=== PATIENT | male | born 1945 | race Caucasian/White ===

== ENCOUNTER 2017-07-21 14:27 | Inpatient (IN) | payer MEDICARE, MEDICAID ==
[~2017-07-21] VITALS: Ht 185.4 cm; Wt 110.4 kg
[2017-07-21 14:28] VITALS: BP 197/114; PULSE 103; RESP 20; TEMP 97.9; O2SAT 97
[2017-07-21] MEDS ORDERED: ASPI81TA81 PO (14:47)
--- NOTE | 2017-07-21 15:00 | PD ---
HPI Chief Complaint: Laceration/Skin Injury Time Seen by Provider: 14:51 Travel History International Travel<30 days: No Contact w/Intl Traveler<30days: No Traveled to known affect area: No History of Present Illness HPI 72-year-old male patient with history of CHF, hypertension, presents to the ER today because he has had a nonhealing left leg wound for at least 2 weeks, states that he had fell and hit the area, and it had enlarged and gone worst. He also states that he has not been feeling well, has some chest discomfort and shortness of breath intermittently especially at night. He is currently denying any chest pains or shortness of breath. He denies any fevers, vomiting , or other symptoms. Modifying Factors: None Associated Signs & Symptoms: Left leg wound, intermittent chest discomfort and shortness of breath Risk Factors: Elderly PFSH Past Medical History Arthritis: No Asthma: No Autoimmune Disease: No Blood Disorders: No Anxiety: No Depression: No Heart Rhythm Problems: Yes (Pace w/ Defib [phone]) Cancer: No Cardiac Catheterization: Yes Cardiovascular Problems: Yes (AICD/PACEMAKER) High Cholesterol: No Chemotherapy: No Chest Pain: Yes Congestive Heart Failure: Yes COPD: No Cerebrovascular Accident: No Diabetes: No Diminished Hearing: No Endocrine: No Gastrointestinal Disorders: Yes GERD: No Genitourinary: No Hiatal Hernia: No Hypertension: Yes Immune Disorder: No Implanted Vascular Access Dvce: Yes Kidney Stones: No Musculoskeletal: Yes (Back surgery x2) Neurologic: No Psychiatric: No Reproductive: No Respiratory: No Immunizations Current: Yes Migraines: No Radiation Therapy: No Renal Failure: No Seizures: No Sickle Cell Disease: No Sleep Apnea: No Thyroid Disease: No Ulcer: Yes Past Surgical History Abdominal Surgery: No AICD: Yes Arteriovenous Shunt: No Cardiac Surgery: Yes (02[facility]24[facility]) Ear Surgery: No Endocrine Surgery: No Eye Surgery: No Genitourinary Surgery: No Gynecologic Surgery: No Insulin Pump: No Joint Replacement: No Oral Surgery: No Pacemaker: Yes (AND DEFIB) Thoracic Surgery: No Other Surgery: Yes Social History Alcohol Use: Yes (MODERATE USE, NOT EVERYDAY) Tobacco Use: Yes (SOME DAY SMOKER) Substance Use: Yes (HX OF, DENIES CURRENT USE) Allergies-Medications (Allergen,Severity, Reaction): Coded Allergies: No Known Allergies (Verified , 08/09/16) Reported Meds & Prescriptions Reported Meds & Active Scripts Active Reported Aspir-81 (Aspirin) 81 Mg Tabdr 162 Mg PO DAILY Review of Systems Except as stated in HPI: all other systems reviewed are Neg Physical Exam Narrative GENERAL: Well-developed elderly white male patient currently in mild distress. Awake and oriented 3. SKIN: Focused skin assessment warm/dry. There is a 5 cm left anterior cohn wound that has surrounding erythema and brownish eschar. There is surrounding edema and tenderness to palpation as well. HEAD: Atraumatic. Normocephalic. EYES: Pupils equal and round. No scleral icterus. No injection or drainage. ENT: No nasal bleeding or discharge. Mucous membranes pink and moist. NECK: Trachea midline. No JVD. CARDIOVASCULAR: Regular rate and rhythm. No murmur appreciated. RESPIRATORY: No accessory muscle use. Clear to auscultation. Breath sounds equal bilaterally. GASTROINTESTINAL: Abdomen soft, non-tender, nondistended. Hepatic and splenic margins not palpable. MUSCULOSKELETAL: No obvious deformities. No clubbing. No cyanosis. No edema. NEUROLOGICAL: Awake and alert. No obvious cranial nerve deficits. Motor grossly within normal limits. Normal speech. PSYCHIATRIC: Appropriate mood and affect; insight and judgment normal. Data Data Last Documented VS Vital Signs Date Time Temp Pulse Resp B/P (MAP) Pulse Ox O2 Delivery O2 Flow Rate FiO2 07/21/17 14:56 Room Air 07/21/17 14:28 97.9 103 20 97 Orders Orders Electrocardiogram (07/21/17 14:51) Complete Blood Count With Diff (07/21/17 14:51) Comprehensive Metabolic Panel (07/21/17 14:51) Lactic Acid Sepsis Protocol (07/21/17 14:51) Ckmb (Isoenzyme) Profile (07/21/17 14:51) Troponin I (07/21/17 14:51) Blood Culture (07/21/17 14:51) Chest, Single Ap (07/21/17 14:51) Blood Glucose (07/21/17 14:51) Ecg Monitoring (07/21/17 14:51) Iv Access Insert/Monitor (07/21/17 14:51) Oximetry (07/21/17 14:51) Oxygen Administration (07/21/17 14:51) Tibia/Fibula (Ap/Lat) (07/21/17 15:00) Piperacil-Tazo 4.5 Gm Premix (Zosyn 4.5 (07/21/17 16:29) Labs Laboratory Tests Test 07/21/17 10:20 07/21/17 15:20 White Blood Count 5.4 TH/MM3 Red Blood Count 3.54 MIL/MM3 Hemoglobin 12.1 GM/DL Hematocrit 36.6 % Mean Corpuscular Volume 103.6 FL Mean Corpuscular Hemoglobin 34.3 PG Mean Corpuscular Hemoglobin Concent 33.1 % Red Cell Distribution Width 14.6 % Platelet Count 284 TH/MM3 Mean Platelet Volume 7.0 FL Neutrophils (%) (Auto) 62.6 % Lymphocytes (%) (Auto) 14.2 % Monocytes (%) (Auto) 13.7 % Eosinophils (%) (Auto) 8.1 % Basophils (%) (Auto) 1.4 % Neutrophils # (Auto) 3.4 TH/MM3 Lymphocytes # (Auto) 0.8 TH/MM3 Monocytes # (Auto) 0.7 TH/MM3 Eosinophils # (Auto) 0.4 TH/MM3 Basophils # (Auto) 0.1 TH/MM3 CBC Comment DIFF FINAL Differential Comment Blood Urea Nitrogen 14 MG/DL Creatinine 0.79 MG/DL Random Glucose 99 MG/DL Total Protein 7.0 GM/DL Albumin 3.1 GM/DL Calcium Level 8.5 MG/DL Alkaline Phosphatase 55 U/L Aspartate Amino Transf (AST/SGOT) 17 U/L Alanine Aminotransferase (ALT/SGPT) 17 U/L Total Bilirubin 0.3 MG/DL Sodium Level 139 MEQ/L Potassium Level 3.9 MEQ/L Chloride Level 108 MEQ/L Carbon Dioxide Level 24.6 MEQ/L Anion Gap 6 MEQ/L Estimat Glomerular Filtration Rate 96 ML/MIN Total Creatine Kinase 50 U/L Troponin I 0.02 NG/ML Lactic Acid Level 1.4 mmol/L MDM Medical Decision Making Medical Screen Exam Complete: Yes Emergency Medical Condition: Yes Medical Record Reviewed: Yes Interpretation(s) EKG shows paced rhythm at a rate of 92 bpm. No signs of acute ST-T changes. Laboratory Tests Test 07/21/17 10:20 07/21/17 15:20 Red Blood Count 3.54 MIL/MM3 (4.50-5.90) Hemoglobin 12.1 GM/DL (13.0-17.0) Hematocrit 36.6 % (39.0-51.0) Mean Corpuscular Volume 103.6 FL (80.0-100.0) Mean Corpuscular Hemoglobin 34.3 PG (27.0-34.0) Monocytes (%) (Auto) 13.7 % (0.0-8.0) Eosinophils (%) (Auto) 8.1 % (0.0-4.0) Lymphocytes # (Auto) 0.8 TH/MM3 (1.0-4.8) Albumin 3.1 GM/DL (3.4-5.0) Chloride Level 108 MEQ/L (98-107) Last 24 hours Impressions Tibia/Fibula X-Ray 07/21/17 1500 Signed Impressions: Service Date/Time: Friday, July 21, 2017 15:19 - CONCLUSION: Osseous structures of the leg are intact. Rolando Hodges MD Chest X-Ray 07/21/17 1451 Signed Impressions: Service Date/Time: Friday, July 21, 2017 15:04 - CONCLUSION: Cardiomegaly. Clear lungs. Rolando George Jr., MD Differential Diagnosis Left leg cellulitis versus sepsis versus dehydration versus metabolic issues versus ACS Narrative Course Ex-rays did not reveal any signs of osseous injuries or osteomyelitis. The wound does appear to have some underlying infection and IV antibiotics were initiated after cultures were drawn. There are no sniff can signs of sepsis at this point. EKG and cardiac enzymes are negative. However, patient's intermittent chest pains which have been getting worse, my plan would also be to admit him for further evaluation of cardiac issues. Case is discussed with Dr. Cruz for admission. Diagnosis Primary Impression: Chest pain Additional Impressions: Leg wound, left Cellulitis Admitting Information Admitting Physician Requests: Admit Leslie Aguirre MD Jul 21, 2017 15:00
--- NOTE | 2017-07-21 15:16 | RADRPT ---
EXAM DATE/TIME: 07/21/2017 15:04 [facility] COMPARISON: CHEST SINGLE AP, August 08, 2016, 16:30. INDICATIONS : Chest pain. MEDICAL HISTORY : Hypertension. SURGICAL HISTORY : Defibrilator. ENCOUNTER: Initial ACUITY: 1 day PAIN SCORE: 0/10 LOCATION: Bilateral chest FINDINGS: Bilateral portable frontal views of the chest show cardiomegaly. Pulmonary vascular engorgement is no t appreciated. Linear atelectasis within the lingula. No infiltrates or effusions. Pacing device over lying the left chest. CONCLUSION: Cardiomegaly. Clear lungs. Rolando George Jr., MD on July 21, 2017 at 15:14 Board Certified Radiologist. This report was verified electronically.
[2017-07-21 15:50] LABS: AUTOMATED NEUTROPHIL # 3.4 TH/MM3 (1.8-7.7); BASOPHIL # 0.1 TH/MM3 (0-0.2); BASOPHIL % 1.4 % (0.0-2.0); EOSINOPHIL # 0.4 TH/MM3 (0-0.4); EOSINOPHIL % 8.1 % (0.0-4.0); HEMATOCRIT 36.6 % (39.0-51.0); HEMOGLOBIN 12.1 GM/DL (13.0-17.0); LYMPH % 14.2 % (9.0-44.0); LYMPHOCYTE # 0.8 TH/MM3 (1.0-4.8); MEAN CELL VOLUME 103.6 FL (80.0-100.0); MEAN CORPUSCULAR HEMOGLOBIN 34.3 PG (27.0-34.0); MEAN CORPUSCULAR HGB CONC 33.1 % (32.0-36.0); MONO % 13.7 % (0.0-8.0); MONOCYTE # 0.7 TH/MM3 (0-0.9); NEUT % 62.6 % (16.0-70.0); PLATELET COUNT 284 TH/MM3 (150-450); RED BLOOD COUNT 3.54 MIL/MM3 (4.50-5.90); RED CELL DISTRIBUTION WIDTH 14.6 % (11.6-17.2); WHITE BLOOD COUNT 5.4 TH/MM3 (4.0-11.0)
--- NOTE | 2017-07-21 15:59 | RADRPT ---
EXAM DATE/TIME: 07/21/2017 15:19 [facility] COMPARISON: No previous studies available for comparison. INDICATIONS : Left tibia pain and swelling after fall. MEDICAL HISTORY : Previous ankle fracture. SURGICAL HISTORY : None. ENCOUNTER: Initial ACUITY: 3 weeks PAIN SCORE: 10/10 LOCATION: Left middle tibia. FINDINGS: Two view examination of the left tibia demonstrates no evidence of fracture or dislocation. Bony min eralization is normal. No radiopaque foreign bodies. Vascular calcification. Area of clinical conc lam is medially in the mid calf; there is soft tissue swelling, but no radiopaque foreign bodies.. CONCLUSION: Osseous structures of the leg are intact. Rolando Hodges MD on July 21, 2017 at 15:57 Board Certified Radiologist. This report was verified electronically.
[2017-07-21 16:10] LABS: ALBUMIN 3.1 GM/DL (3.4-5.0); BICARBONATE 24.6 MEQ/L (21.0-32.0); BLOOD UREA NITROGEN 14 MG/DL (7-18); CALCIUM 8.5 MG/DL (8.5-10.1); CHLORIDE 108 MEQ/L (98-107); CREATININE 0.79 MG/DL (0.60-1.30); GLOMERULAR FILTRATION RATE 96 ML/MIN (>89); GLUCOSE,RANDOM 99 MG/DL (74-106); SODIUM (NA) 139 MEQ/L (136-145)
[2017-07-21 16:11] LABS: AST (GOT) 17 U/L (15-37)
[2017-07-21 16:15] LABS: ALKALINE PHOSPHATASE 55 U/L (45-117); ALT (GPT) 17 U/L (12-78); TOTAL BILIRUBIN ADULT 0.3 MG/DL (0.2-1.0); TROPONIN I 0.02 NG/ML (0.02-0.05)
[2017-07-21] MEDS ORDERED: PIPERACIL-TAZO 4.5 GM PREMIX 100 ML IV STA (16:29)
[2017-07-21 17:00] VITALS: BP 129/69; PULSE 86; RESP 16; O2SAT 96
[2017-07-21] MEDS ORDERED: NALOXONE HCL 0.4 MG/ML AMP IV PUSH PRN ×2 (17:00→19:00)
[2017-07-21] MEDS ORDERED: LACTULOSE SYRUP 20 GM/30 ML CUP PO PRN (17:00)
[2017-07-21] MEDS ORDERED: BISACODYL 10 MG SUPP RECTAL PRN (17:00)
[2017-07-21] MEDS ORDERED: SODIUM CHLORIDE 0.9% FLUSH 10 ML FLUSH IV FLUSH PRN (17:00)
[2017-07-21] MEDS ORDERED: MAGNESIUM HYDROXIDE SUSP 30 ML CUP PO PRN (17:00)
[2017-07-21] MEDS ORDERED: ONDANSETRON HCL 4 MG/2 ML VIAL IVP PRN (17:00)
[2017-07-21] MEDS ORDERED: SENNOSIDES 8.6 MG TAB PO PRN (17:00)
--- NOTE | 2017-07-21 18:00 | HHI.HP ---
HPI Service [facility] Hospitalists Primary Care Physician Unknown Admission Diagnosis intermittent chest pains/left leg cellulitis/wound Diagnoses: Chief Complaint: Intermittent chest pain or shortness of breath Left wrist pain Wound left lower extremity Travel History International Travel<30 Days: No Contact w/Intl Traveler <30 Da: No Traveled to Known Affected Are: No History of Present Illness Written by Radha Solorzano, acting as scribe for Dr. Cruz on 07/21/17 at 17: 27. This is 72-year-old male with a past medical history significant for hypertension, history of atrial fibrillation status post ablation, CAD status post previous [place], defibrillator implantation, CHF, chronic tobacco abuse, chronic alcohol abuse, history of polysubstance abuse and medication noncompliance since to [facility] [address] ED with complaints of nonhealing wound left lower extremity for the past 2-3 weeks. Patient states he fell and hit the area on a curb several weeks ago. He's been using peroxide at home and states that it's decreased in size. He reports intermittent drainage of serous fluid but denies any pus. Due to not being allowed to ride the bus because of the draining wound, patient went to the clinic today and was then sent to our facility. Additionally, patient complains of intermittent chest pain. He states this most often occurs at rest when he is trying to sleep at night. Occasionally radiates into the left arm. He reports associated shortness of breath. He denies any palpitations, lightheadedness, nausea or vomiting. Patient reports improvement after sitting up on the side of the bed for several minutes. He states he does not have the defibrillator interrogated in quite some time. Also, patient complains of ongoing left wrist pain since he sustained a fall approximately one year ago. "I know that it's broken". At present, patient is chest pain-free. Initial troponin 0.02. EKG was obtained which shows a paced rhythm at a rate of 92 bpm with no evidence of acute ST-T changes. Review of Systems Except as stated in HPI: all other systems reviewed are Neg Past Family Social History Past Medical History Hypertension History of atrial fibrillation CAD status post previous [place] Cardiomyopathy status post AICD placement History of CHF Dyslipidemia Chronic tobacco abuse Chronic alcohol abuse Medication noncompliance Past Surgical History AICD placement Cardiac ablation Back surgery 2 Reported Medications Patient denies taking any medications at home Allergies: Coded Allergies: No Known Allergies (Verified , 08/09/16) Active Ordered Medications Current Medications Medications (Trade) Dose Ordered Sig/Keith Route Start Time Stop Time Status Last Admin Sodium Chloride 1,000 ml @ 100 mls/hr Q10H IV 07/21/17 16:58 UNV (NS Flush) 2 ml UNSCH PRN IV FLUSH 07/21/17 17:00 UNV (NS Flush) 2 ml BID IV FLUSH 07/21/17 21:00 UNV (Tylenol) 650 mg Q4H PRN PO 07/21/17 17:00 UNV (Zofran Inj) 4 mg Q6H PRN IVP 07/21/17 17:00 UNV (Lovenox Inj) 40 mg Q24H SQ 07/21/17 17:00 UNV (Narcan Inj) 0.4 mg UNSCH PRN IV PUSH 07/21/17 17:00 UNV (Kylee-Colace) 1 tab BID PO 07/21/17 21:00 UNV (Milk Of Magnesia Liq) 30 ml Q12H PRN PO 07/21/17 17:00 UNV (Senokot) 17.2 mg Q12H PRN PO 07/21/17 17:00 UNV (Dulcolax Supp) 10 mg DAILY PRN RECTAL 07/21/17 17:00 UNV (Lactulose Liq) 30 ml DAILY PRN PO 07/21/17 17:00 UNV Piperacillin Sod/ Tazobactam Sod 100 ml @ 200 mls/hr Q6H IV 07/21/17 17:15 UNV Family History Mother, age 91 Sisters, age 91 and 92 Father, unknown, estranged Social History Patient reports history of tobacco use of one pack per month. He states he only smokes when he drinks. He admits to previously drinking large amounts of alcohol but states the last year he has cut down and now drinks once a week. He also reports rare marijuana use. Per EMR, previous history of cocaine use. Physical Exam Vital Signs Vital Signs Date Time Temp Pulse Resp B/P (MAP) Pulse Ox O2 Delivery O2 Flow Rate FiO2 07/21/17 17:00 86 16 129/69 (89) 96 07/21/17 14:56 Room Air 07/21/17 14:56 Room Air 07/21/17 14:28 97.9 103 20 197/114 (141) 97 Room Air Physical Exam GENERAL: This is a well-nourished, well-developed patient, in no apparent distress. Awake and alert. Appears comfortable. SKIN: Warm and dry. (+)wound anterior lower left cohn, approximately 3x4cm with large central area of eschar and surrounding erythema. Tender to palpation. Not actively draining. HEAD: Atraumatic. Normocephalic. No temporal or scalp tenderness. EYES: Pupils equal round and reactive. Extraocular motions intact. No scleral icterus. No injection or drainage. ENT: Nose without bleeding or purulent drainage. Throat without erythema, tonsillar hypertrophy or exudate. Uvula midline. Airway patent. Poor dentition. NECK: Trachea midline. No lymphadenopathy. Supple, nontender, no meningeal signs. CARDIOVASCULAR: Regular rate and rhythm without murmurs, gallops, or rubs. RESPIRATORY: Clear to auscultation. Breath sounds equal bilaterally. No wheezes , rales, or rhonchi. GASTROINTESTINAL: Abdomen soft, non-tender, nondistended. No hepato-splenomegaly , or palpable masses. No guarding. MUSCULOSKELETAL: Extremities without clubbing, cyanosis, or edema. Decreased ROM left wrist with mild deformity appreciated and well healed scar on back of hand. NEUROLOGICAL: Awake and alert. Able to move approximately spontaneously. Normal speech. Laboratory Laboratory Tests Test 07/21/17 10:20 07/21/17 15:20 White Blood Count 5.4 Red Blood Count 3.54 Hemoglobin 12.1 Hematocrit 36.6 Mean Corpuscular Volume 103.6 Mean Corpuscular Hemoglobin 34.3 Mean Corpuscular Hemoglobin Concent 33.1 Red Cell Distribution Width 14.6 Platelet Count 284 Mean Platelet Volume 7.0 Neutrophils (%) (Auto) 62.6 Lymphocytes (%) (Auto) 14.2 Monocytes (%) (Auto) 13.7 Eosinophils (%) (Auto) 8.1 Basophils (%) (Auto) 1.4 Neutrophils # (Auto) 3.4 Lymphocytes # (Auto) 0.8 Monocytes # (Auto) 0.7 Eosinophils # (Auto) 0.4 Basophils # (Auto) 0.1 CBC Comment DIFF FINAL Differential Comment Blood Urea Nitrogen 14 Creatinine 0.79 Random Glucose 99 Total Protein 7.0 Albumin 3.1 Calcium Level 8.5 Alkaline Phosphatase 55 Aspartate Amino Transf (AST/SGOT) 17 Alanine Aminotransferase (ALT/SGPT) 17 Total Bilirubin 0.3 Sodium Level 139 Potassium Level 3.9 Chloride Level 108 Carbon Dioxide Level 24.6 Anion Gap 6 Estimat Glomerular Filtration Rate 96 Total Creatine Kinase 50 Troponin I 0.02 Lactic Acid Level 1.4 Date/Time Source Procedure Growth Status 07/21/17 10:25 Blood Peripheral Aerobic Blood Culture Pending Received 07/21/17 10:25 Blood Peripheral Anaerobic Blood Culture Pending Received Result Diagram: 07/21/17 1020 07/21/17 1020 Imaging Last Impressions Tibia/Fibula X-Ray 07/21/17 1500 Signed Impressions: Service Date/Time: Friday, July 21, 2017 15:19 - CONCLUSION: Osseous structures of the leg are intact. Rolando Hodges MD Chest X-Ray 07/21/17 1451 Signed Impressions: Service Date/Time: Friday, July 21, 2017 15:04 - CONCLUSION: Cardiomegaly. Clear lungs. Rolando George Jr., MD [place] VTE Risk Assessment Caprini VTE Risk Assessment: Mod/High Risk (score >= 2) Caprini Risk Assessment Model Point Value = 1 Point Value = 2 Point Value = 3 Point Value = 5 Age 41-60 Minor surgery BMI > 25 kg/m2 Swollen legs Varicose veins or History of unexplained or recurrent spontaneous Oral contraceptives or hormone replacement Sepsis (< 1 month) Serious lung disease, including pneumonia (< 1 month) Abnormal pulmonary function Acute myocardial infarction Congestive heart failure (< 1 month) History of inflammatory bowel disease Medical patient at bed rest Age 61-74 Arthroscopic surgery Major open surgery (> 45 min) Laparoscopic surgery (> 45 min) Malignancy Confined to bed (> 72 hours) Immobilizing plaster cast Central venous access Age >= 75 History of VTE Family history of VTE Factor V Leiden Prothrombin [id number] Lupus anticoagulant Anticardiolipin antibodies Elevated serum homocysteine Heparin-induced thrombocytopenia Other congenital or acquired thrombophilia Stroke (< 1 month) Elective arthroplasty Hip, pelvis, or leg fracture Acute spinal cord injury (< 1 month) Prophylaxis Regimen Total Risk Factor Score Risk Level Prophylaxis Regimen 0-1 Low Early ambulation 2 Moderate Order ONE of the following: *Sequential Compression Device (SCD) *Heparin 5000 units SQ BID 3-4 Higher Order ONE of the following medications: *Heparin 5000 units SQ TID *Enoxaparin/Lovenox 40 mg SQ daily (WT < 150 kg, CrCl > 30 mL/min) *Enoxaparin/Lovenox 30 mg SQ daily (WT < 150 kg, CrCl > 10-29 mL/min) *Enoxaparin/Lovenox 30 mg SQ BID (WT < 150 kg, CrCl > 30 mL/min) AND/OR *Sequential Compression Device (SCD) 5 or more Highest Order ONE of the following medications: *Heparin 5000 units SQ TID (Preferred with Epidurals) *Enoxaparin/Lovenox 40 mg SQ daily (WT < 150 kg, CrCl > 30 mL/min) *Enoxaparin/Lovenox 30 mg SQ daily (WT < 150 kg, CrCl > 10-29 mL/min) *Enoxaparin/Lovenox 30 mg SQ BID (WT < 150 kg, CrCl > 30 mL/min) AND *Sequential Compression Device (SCD) Assessment and Plan Assessment and Plan 72-year-old male with a past medical history significant for hypertension, history of atrial fibrillation status post ablation, CAD status post previous [place] , defibrillator implantation, CHF, chronic tobacco abuse, chronic alcohol abuse , history of polysubstance abuse and medication noncompliance since to [facility] [address] [facility] ED with complaints of nonhealing wound left lower extremity for the past 2-3 weeks. Intermittent chest pain, r/o ACS Cardiomyopathy status post AICD implantation CAD s/p previous [place] hx of atrial fibrillation s/p cardiac ablation Medication noncompliance - Patient with previous cardiac catheterization in 2010 showing triple- vessel disease with recommended medical management. - Trend cardiac enzymes and EKG. Initial troponin 0.02. - Request interrogation of pacemaker. Will consider consultation of Dr. Macdonald. - Continuous cardiac monitoring - Aspirin daily - Heart healthy diet - Supplemental oxygen Nonhealing LLE wound - Patient given dose of Zosyn in the ED. Continue. - Patient does not appear septic. White count is normal. Lactic acid 1.4. He is afebrile. Follow-up on blood culture results. - Wound culture - Consult wound care nurse - Obtain soft tissue ultrasound to ascertain if there is an underlying abscess that would require surgical consultation Left wrist pain status post fall 1 year ago - Patient does appear to have some limited range of motion in deformity in the left wrist. Will obtain x-ray left wrist for further evaluation Hypertension - Patient admits to being noncompliant with his medications - BP was elevated at presentation 197/114. Improved now 129/69. CHF - Does not appear decompensated - Chest x-ray personally reviewed shows cardiomegaly and clear lungs. - Nuclear stress test done in 2013 showed ejection fraction of 25%. Patient is noncompliant with therapy. - Monitor for signs of fluid overload - Monitor respiratory status Macrocytosis - Likely secondary to alcohol use - Discussed abstinence Alcohol use - No signs/symptoms of alcohol withdrawal - Monitor Ongoing tobaccoism - Discussed smoking cessation - Nicotine patch if necessary DVT prophylaxis - Bilateral SCD/[place] hose - Lovenox 40 mg sq daily This note was transcribed by ANASTACIO Lara. I, Dr. Marifer Cruz personally performed the history, physical exam, and medical decision making; and confirmed the accuracy of the information in the transcribed note. Authenticated by Dr. Marifer Cruz on 07/21/17 at 17:27. Discussed Condition With ED physician, patient Physician Certification 2 Midnight Certification Type: Admission for Inpatient Services Order for Inpatient Services The services are ordered in accordance with Medicare regulations or non- Medicare payer requirements, as applicable. In the case of services not specified as inpatient-only, they are appropriately provided as inpatient services in accordance with the 2-midnight benchmark. Estimated LOS (days): 3 3 days is the estimated time the patient will need to remain in the hospital, assuming treatment plan goals are met and no additional complications. Post-Hospital Plan: Not yet determined Radha Solorzano Jul 21, 2017 18:00 Marifer Cruz MD Jul 21, 2017 18:47
--- NOTE | 2017-07-21 18:11 | RADRPT ---
EXAM DATE/TIME: 07/21/2017 17:34 [facility] COMPARISON: No previous studies available for comparison. INDICATIONS : Left wrist discomfort, no known injury. MEDICAL HISTORY : None. SURGICAL HISTORY : None. ENCOUNTER: Initial ACUITY: 1 year PAIN SCORE: 1/10 LOCATION: Left wrist. FINDINGS: There is a transverse fracture through the distal one third of the scaphoid with one half bone width lateral displacement of the distal fragment. The remainder of the carpus is in normal alignment. Mo derately advanced degenerative changes in the 1st CMC articulation. Vascular calcification distal fo rearm.. CONCLUSION: Displaced transverse fracture of the distal one third of the scaphoid. Rolando Hodges MD on July 21, 2017 at 18:07 Board Certified Radiologist. This report was verified electronically.
[2017-07-21] MEDS: ENOXAPARIN SODIUM 40 MG/0.4 ML SYRINGE SQ SCH (18:31)
[2017-07-21] MEDS: SODIUM CHLOR 0.9% 1000 ML INJ 1,000 ML IV SCH (18:31)
--- NOTE | 2017-07-21 20:14 | RADRPT ---
EXAM DATE/TIME: 07/21/2017 18:52 [facility] COMPARISON: No previous studies available for comparison. INDICATIONS : Left leg swelling and redness. MEDICAL HISTORY : Congestive heart failure. Myocardial infarction. Hypertension. Irregular heartbeat. Measles. SURGICAL HISTORY : Pacemaker. Cardiac catheterization. Internal defibrillator. Back surgery. ENCOUNTER: Initial ACUITY: 2 weeks PAIN SCORE: 10 LOCATION: Left leg. AREA EVALUATED: Left medial calf area. FINDINGS: There is a complex primarily hypoechoic mass/collection in the medial left calf which measures 6.7 x 4.5 x 2.1 cm. No internal color flow is identified. There is subjectively increased Doppler color lorene w surrounding the process. CONCLUSION: Complex hypoechoic collection in the medial left calf Frank Bedolla MD on July 21, 2017 at 20:10 Board Certified Radiologist. This report was verified electronically.
[2017-07-21 20:40] VITALS: BP 132/76; PULSE 85; RESP 19; TEMP 98.4; O2SAT 96
[2017-07-21] MEDS: DOCUSATE SODIUM 50 MG/SENNA 8.6 MG TAB PO SCH (22:03)
[2017-07-21] MEDS: PIPERACIL-TAZO 4.5 GM PREMIX 100 ML IV SCH (22:04)
[2017-07-21] MEDS: SODIUM CHLORIDE 0.9% FLUSH 10 ML FLUSH IV FLUSH SCH (22:04)
[2017-07-21 23:00] VITALS: PULSE 75
[2017-07-21 23:45] VITALS: BP 145/83; PULSE 87; RESP 18; TEMP 98.3; O2SAT 94
[2017-07-22] VITALS (9 sets, daily range): BP systolic 124–155; BP diastolic 65–81; PULSE 78–97; RESP 18–24; TEMP 97.6–98.2; O2SAT 94–97
[2017-07-22] MEDS: PIPERACIL-TAZO 4.5 GM PREMIX 100 ML IV SCH ×3 (04:20→18:35)
[2017-07-22 04:34] LABS: BASOPHIL # 0.1 TH/MM3 (0-0.2); BASOPHIL % 2.6 % (0.0-2.0); EOSINOPHIL # 0.6 TH/MM3 (0-0.4); EOSINOPHIL % 10.4 % (0.0-4.0); HEMATOCRIT 34.2 % (39.0-51.0); HEMOGLOBIN 11.5 GM/DL (13.0-17.0); LYMPH % 18.6 % (9.0-44.0); MEAN CELL VOLUME 101.8 FL (80.0-100.0); MEAN CORPUSCULAR HEMOGLOBIN 34.1 PG (27.0-34.0); MEAN CORPUSCULAR HGB CONC 33.5 % (32.0-36.0); MONO % 14.2 % (0.0-8.0); MONOCYTE # 0.8 TH/MM3 (0-0.9); NEUT % 54.2 % (16.0-70.0); PLATELET COUNT 265 TH/MM3 (150-450); RED BLOOD COUNT 3.36 MIL/MM3 (4.50-5.90); RED CELL DISTRIBUTION WIDTH 14.4 % (11.6-17.2); WHITE BLOOD COUNT 5.5 TH/MM3 (4.0-11.0)
[2017-07-22 04:59] LABS: BICARBONATE 25.3 MEQ/L (21.0-32.0); CALCIUM 8.1 MG/DL (8.5-10.1); CREATININE 0.91 MG/DL (0.60-1.30)
--- NOTE | 2017-07-22 09:34 | HHI.PR ---
Subjective Remarks Patient says he feels better today. No n/v/d/c. Says he has pain at the wound site, and is not draining much. No fever or chills. Objective Vitals Vital Signs Date Time Temp Pulse Resp B/P (MAP) Pulse Ox O2 Delivery O2 Flow Rate FiO2 07/22/17 07:31 97.7 82 24 132/81 (98) 96 07/22/17 07:17 94 21 07/22/17 03:48 98.2 84 18 124/65 (84) 96 07/21/17 23:45 98.3 87 18 145/83 (103) 94 07/21/17 23:00 75 07/21/17 20:40 98.4 85 19 132/76 (94) 96 07/21/17 17:00 86 16 129/69 (89) 96 07/21/17 14:56 Room Air 07/21/17 14:56 Room Air 07/21/17 14:28 97.9 103 20 197/114 (141) 97 Room Air I/O 07/21/17 07/21/17 07/21/17 07/22/17 07/22/17 07/22/17 07:00 15:00 23:00 07:00 15:00 23:00 Intake Total 300 ml Output Total 700 ml Balance -400 ml Intake Oral 300 ml Output Urine Total 700 ml # Voids 3 Result Diagram: 07/22/17 04107/22/17410 Imaging Last Impressions Tibia/Fibula X-Ray 07/21/17 1500 Signed Impressions: Service Date/Time: Friday, July 21, 2017 15:19 - CONCLUSION: Osseous structures of the leg are intact. Rolando Hodges MD Chest X-Ray 07/21/17 1451 Signed Impressions: Service Date/Time: Friday, July 21, 2017 15:04 - CONCLUSION: Cardiomegaly. Clear lungs. Rolando George Jr., MD Wrist X-Ray 07/21/17 0000 Signed Impressions: Service Date/Time: Friday, July 21, 2017 17:34 - CONCLUSION: Displaced transverse fracture of the distal one third of the scaphoid. Rolando Hodges MD Lower Extremity Ultrasound 07/21/17 0000 Signed Impressions: Service Date/Time: Friday, July 21, 2017 18:52 - CONCLUSION: Complex hypoechoic collection in the medial left calf Frank Bedolla MD Objective Remarks GENERAL: This is a well-nourished, well-developed patient, in no apparent distress. Awake and alert. Appears comfortable. SKIN: Warm and dry. (+)wound anterior lower left cohn, approximately 3x4cm with large central area of eschar and surrounding erythema, now with fluctuation. Tender to palpation. Not actively draining. CARDIOVASCULAR: Regular rate and rhythm without murmurs, gallops, or rubs. RESPIRATORY: Clear to auscultation. Breath sounds equal bilaterally. No wheezes , rales, or rhonchi. GASTROINTESTINAL: Abdomen soft, non-tender, nondistended. No hepato-splenomegaly , or palpable masses. No guarding. MUSCULOSKELETAL: Extremities without clubbing, cyanosis, or edema. Decreased ROM left wrist with mild deformity appreciated and well healed scar on back of hand. NEUROLOGICAL: Awake and alert. Able to move approximately spontaneously. Normal speech. A/P Assessment and Plan 72-year-old male with a past medical history significant for hypertension, history of atrial fibrillation status post ablation, CAD status post previous [place] , defibrillator implantation, CHF, chronic tobacco abuse, chronic alcohol abuse , history of polysubstance abuse and medication noncompliance since to [facility] ED with complaints of nonhealing wound left lower extremity for the past 2-3 weeks. Intermittent chest pain, r/o ACS Cardiomyopathy status post AICD implantation CAD s/p previous [place] Hx of atrial fibrillation s/p cardiac ablation Medication noncompliance - Patient with previous cardiac catheterization in 2010 showing triple- vessel disease with recommended medical management. - Trend cardiac enzymes and EKG. Initial troponin 0.02. trend normal - Interrogation of pacemaker. Will consider consultation of Dr. Macdonald. However patient improved. - Continuous cardiac monitoring - Aspirin daily - Heart healthy diet - Supplemental oxygen Nonhealing LLE wound - Patient given dose of Zosyn in the ED. Continue. - Patient does not appear septic. White count is normal. Lactic acid 1.4. He is afebrile. Follow-up on blood culture results. - Wound culture - Consult wound care nurse - Obtain soft tissue ultrasound to ascertain if there is an underlying abscess that would require surgical consultation. Imaging reviewed patient with likely abscess, consult gen surgery. Left wrist pain status post fall 1 year ago - Patient does appear to have some limited range of motion in deformity in the left wrist. Will obtain x-ray left wrist for further evaluation Hypertension - Patient admits to being noncompliant with his medications - BP was elevated at presentation 197/114. Improved now 129/69. CHF - Does not appear decompensated - Chest x-ray personally reviewed shows cardiomegaly and clear lungs. - Nuclear stress test done in 2013 showed ejection fraction of 25%. Patient is noncompliant with therapy. - Monitor for signs of fluid overload - Monitor respiratory status Macrocytosis - Likely secondary to alcohol use - Discussed abstinence Alcohol use - No signs/symptoms of alcohol withdrawal - Monitor Ongoing tobaccoism - Discussed smoking cessation - Nicotine patch if necessary DVT prophylaxis - Bilateral SCD/LAWRENCE hose - Lovenox 40 mg sq daily Discussed Condition With patient, nurse, Wound care nurse Dr Gerson Mattson gen surg CosmMarifer wooten MD Jul 22, 2017 09:34
[2017-07-22] MEDS: SODIUM CHLOR 0.9% 1000 ML INJ 1,000 ML IV SCH ×2 (11:21→14:00)
[2017-07-22] MEDS: DOCUSATE SODIUM 50 MG/SENNA 8.6 MG TAB PO SCH ×2 (11:22→19:53)
[2017-07-22] MEDS: SODIUM CHLORIDE 0.9% FLUSH 10 ML FLUSH IV FLUSH SCH ×2 (11:22→20:56)
--- NOTE | 2017-07-22 13:24 | PD.WCN.NOT ---
Wound Consult Description: Consult placed for Wound Management of left leg wound per Dr Cruz Communicated with: Dr Nancy Kim,RN Additional Information: Patient seen in H pod of CDU for left anterior lower extremity wound. Wound measures 3.2cm x 2.8cm x dried exudate that was minimally friable when cleansed with NS and gauze. Sterile q tip was used to press gently on fluctuant periwound and remove excess dried exudate. There is no drainage at this time. The periwound is fluctuant, erythematous, and warm to touch with patient stating discomfort. Dr Cruz at bedside and promotion writer discussed wound and agree on consult for bedside I & D for possible abscess. Twila Gurrola [facility] Jul 22, 2017 13:24
--- NOTE | 2017-07-22 13:24 | PD.WCN.NOT ---
Wound Consult Description: Consult placed for Wound Management of left leg wound per Dr Cruz Communicated with: Dr Nancy Kim,RN Additional Information: Patient seen in H pod of CDU for left anterior lower extremity wound. Wound measures 3.2cm x 2.8cm x dried exudate that was minimally friable when cleansed with NS and gauze. Sterile q tip was used to press gently on fluctuant periwound and remove excess dried exudate. There is no drainage at this time. The periwound is fluctuant, erythematous, and warm to touch with patient stating discomfort. Dr Cruz at bedside and financial writer discussed wound and agree on consult for bedside I & D for possible abscess. [facility]ila [facility]rol[facility] Jul 22, 2017 13:24
--- NOTE | 2017-07-22 13:24 | PD.WCN.NOT ---
Wound Consult Description: Consult placed for Wound Management of left leg wound per Dr Cruz Communicated with: Dr Nancy Kim,RN Additional Information: Patient seen in H pod of CDU for left anterior lower extremity wound. Wound measures 3.2cm x 2.8cm x dried exudate that was minimally friable when cleansed with NS and gauze. Sterile q tip was used to press gently on fluctuant periwound and remove excess dried exudate. There is no drainage at this time. The periwound is fluctuant, erythematous, and warm to touch with patient stating discomfort. Dr Cruz at bedside and conventional underwriter discussed wound and agree on consult for bedside I & D for possible abscess. [facility]ila [facility]rol[facility] Jul 22, 2017 13:24
--- NOTE | 2017-07-22 14:52 | EKG ---
Date Performed: 07/21/2017 Time Performed: 14:51:39 PTAGE: 72 years EKG: ELECTRONIC VENTRICULAR PACEMAKER ABNORMAL RHYTHM ECG Compared to PREVIOUS TRACING the EKG is now paced with P wave synchronis pacing. EKGs are thus not d irectly comparable. PREVIOUS TRACIN07/21/2017 14.44 DOCTOR: Kyara Mehta Interpretating Date/Time 07/22/2017 14:48:37
--- NOTE | 2017-07-22 14:56 | EKG ---
Date Performed: 07/21/2017 Time Performed: 23:51:39 PTAGE: 72 years EKG: ELECTRONIC VENTRICULAR PACEMAKER ABNORMAL RHYTHM ECG PREVIOUS TRACING : 07/21/2017 14.51 Compared to prior tracing no significant change DOCTOR: Kyara Mehta Interpretating Date/Time 07/22/2017 14:52:28
[2017-07-22] MEDS: ENOXAPARIN SODIUM 40 MG/0.4 ML SYRINGE SQ SCH (18:36)
[2017-07-22] MEDS: ACETAMINOPHEN 325 MG TAB PO PRN (19:04)
[2017-07-22] MEDS ORDERED: LIDOCAINE HCL 1% 20 ML VIAL INFIL ONE (22:45)
--- NOTE | 2017-07-22 23:33 | MB ---
cc: HAILEYEVAERICA SHELTON DATE OF CONSULTATION 07/22/17 REASON FOR CONSULTATION Left lower extremity abscess. REFERRING PHYSICIAN Dr. Marifer Cruz HISTORY OF PRESENT ILLNESS The patient is a 72-year-old male who was admitted to [facility] for left lower extremity abscess. The patient has a history of chronic alcohol abuse and states that he fell onto a curb several days ago and sustained a deep abrasion. This continued to swell and turn red over the last several days with some drainage of serous fluid and purulent material. The patient on admission noted to be afebrile with normal white blood cell count, no sign of sepsis. The patient was admitted for IV antibiotics and general surgery was consulted for drainage. The patient has no history of peripheral vascular disease, diabetes or any non-healing ulcers of the leg. REVIEW OF SYSTEMS 12 point review of systems done with the patient, negative except positives mentioned above in history of present illness. PAST MEDICAL HISTORY 1. Hypertension, 2. Atrial fibrillation 3. Coronary artery disease 4. Status post pacemaker placement, 5. CHF, 6. Dyslipidemia, 7. Alcohol and tobacco use. PAST SURGICAL HISTORY 1. Pacemaker 2. Back surgery 3. Previous history of cardiac ablation. MEDICATIONS The patient denies taking all medications. ALLERGIES NO KNOWN DRUG ALLERGIES. FAMILY HISTORY Noncontributory to current process. SOCIAL HISTORY The patient occasionally uses tobacco products, uses alcohol on a regular basis, rarely uses marijuana. Denies any other illicit drug use. PHYSICAL EXAMINATION VITAL SIGNS: Temperature 98.2 degrees, blood pressure 155/77, pulse rate 87, O2 saturation 94%. GENERAL: The patient is a well-developed, well-nourished male in no acute distress. HEENT: Head normocephalic, atraumatic. Pupils round, react to light. Sclerae are anicteric. Oral cavity is clear. Airway is patent. NECK: Supple. No JVD. LUNGS: Clear to auscultation bilaterally, nonlabored breathing pattern. HEART: Regular rhythm. ABDOMEN: Soft, nontender to palpation. No organomegaly. No ascites. EXTREMITIES: No clubbing, cyanosis or edema. He has abscess on the left lower medial anterior tibial area with mild superficial eschar with no necrotic tissue. There is fluctuance in this area concerning for possible chronic abscess. NEUROLOGIC: The patient is alert and oriented x3, nonfocal peripheral exam. Cranial nerves II-XII grossly intact. ASSESSMENT AND PLAN The patient is a 72 year old male with a superficial subcutaneous abscess of left leg with no evidence of any necrosis. I discussed with the patient options including bedside drainage versus drainage in the operating room. The patient, in order to avoid being n.p.o. for the operating room and to expedite his discharge, would like drainage at the bedside. I did discuss risks, benefits, alternatives to an I&D at the bedside with local anesthetic and he is agreement with the procedure. We will get consent from him and proceed with bedside I&D. Thank you very much for this consultation. MD JJ Santamaria/ /10:40 PM /11:20 PM
[2017-07-23] VITALS (10 sets, daily range): BP systolic 124–149; BP diastolic 66–87; PULSE 88–98; RESP 16–20; TEMP 97.3–98.5; O2SAT 92–99
[2017-07-23] MEDS: PIPERACIL-TAZO 4.5 GM PREMIX 100 ML IV SCH ×3 (00:43→12:24)
[2017-07-23] MEDS: SODIUM CHLOR 0.9% 1000 ML INJ 1,000 ML IV SCH ×3 (00:43→20:00)
[2017-07-23] MEDS: SODIUM CHLORIDE 0.9% FLUSH 10 ML FLUSH IV FLUSH SCH ×2 (09:00→20:15)
[2017-07-23] MEDS: DOCUSATE SODIUM 50 MG/SENNA 8.6 MG TAB PO SCH ×2 (09:19→20:15)
--- NOTE | 2017-07-23 11:37 | MP ---
cc: ERICA CRUZ DATE OF SURGERY 07/22/2017 PREOPERATIVE DIAGNOSIS Abscess left lower extremity. POSTOPERATIVE DIAGNOSIS Chronic hematoma, left lower extremity, no abscess or evidence of infection. PROCEDURE Evacuation of hematoma 6 cm x 9 cm x 4 cm in the left pretibial medial leg. ATTENDING SURGEON Erica Cruz MD [employer]IEF [employer]IFESTYLE OFFICER Bedside nurse ANESTHESIA 1% lidocaine approximately 8 cc COMPLICATIONS None BLOOD LOSS Minimal FINDINGS A chronic hematoma on the left lower extremity with no evidence of infection. Culture was sent. INDICATIONS FOR PROCEDURE The patient is a male who was recently admitted after a fall several a few weeks back with increasing pain and swelling in the left lower extremity thought to be an abscess. General surgery was asked to perform a consultation for a possible drainage. I have discussed with the patient about the risks, benefits and alternatives of bedside drainage, the patient agreed to undergo the procedure. PROCEDURE After informed consent was obtained, the patient underwent local anesthetic at the site. The small eschar superficially was removed and local anesthetic was instilled in the area with 1% lidocaine. We incised this with approximately a 2 cm incision over the viable of normal-appearing skin. We agreed with some liquid type hematoma and some clotted blood. We did take a culture of this with a Q-tip culture tip. I also used a Q-tip to slowly evacuate some hematoma and irrigate out the cavity. We essentially evacuated of about 100 cc of old hematoma. Again, there was no purulence, odor or any signs of an infection at this time. Once we had evacuated the vast majority of the hematoma and the mass type swelling had been removed, we packed this area with one single piece of the half-inch Iodoform gauze. A sterile dressing was applied up. The patient tolerated the procedure well with no apparent complications. I was present for the entire procedure. MD JJ Santamaria/EDISON /11:06 PM /11:22 AM MTDVitaly
[2017-07-23] MEDS ORDERED: VANCOMYCIN INJ 1,250 MG in SODIUM CHLOR 0.9% 250 ML INJ 250 ML IV SCH (12:30)
[2017-07-23] MEDS ORDERED: Vancomycin Consult Pharmacy 1 EA OTHER SCH (12:30)
[2017-07-23] MEDS: VANCOMYCIN INJ 2,000 MG in SODIUM CHLORID 0.9% 500 ML INJ 500 ML IV SCH (16:09)
--- NOTE | 2017-07-23 16:17 | HHI.PR ---
Subjective Remarks Patient upset that he wants to go home because "my cats does not have food " I explained to him that we had and new +1 tube out of 4 blood culture and this has to be considered seriously until proven otherwise or contamination Objective Vitals Vital Signs Date Time Temp Pulse Resp B/P (MAP) Pulse Ox O2 Delivery O2 Flow Rate FiO2 07/23/17 12:00 98.4 95 20 136/66 (89) 93 07/23/17 08:00 97.3 89 20 137/85 (102) 93 07/23/17 04:00 98.3 98 20 124/75 (91) 93 07/23/17 00:03 97.7 88 20 134/81 (98) 95 07/22/17 21:25 98.0 97 20 138/75 (96) 96 07/22/17 20:22 91 07/22/17 20:11 98.2 87 19 155/77 (103) 94 I/O 07/22/17 07/22/17 07/22/17 07/23/17 07/23/17 07/23/17 07:00 15:00 23:00 07:00 15:00 23:00 Intake Total 300 ml 360 ml Output Total 700 ml 100 ml Balance -400 ml 260 ml Intake Oral 300 ml 360 ml Output Urine Total 700 ml 100 ml # Voids 3 1 1 # Bowel Movements 0 Result Diagram: 07/22/1741007/22/17410 Objective Remarks GENERAL: This is a well-nourished, well-developed patient, in no apparent distress. CARDIOVASCULAR: Regular rate and rhythm without murmurs, gallops, or rubs. RESPIRATORY: Clear to auscultation. Breath sounds equal bilaterally. No wheezes , rales, or rhonchi. GASTROINTESTINAL: Abdomen soft, non-tender, nondistended. Normal active bowel sounds MUSCULOSKELETAL: Lower extremity right in gauze NEURO: Alert & Oriented x4 to person, place, time, situation. Moves all ext x4 A/P Assessment and Plan 07/23: +1 tube out of 4 gram-positive cocci, I will add vancomycin repeat blood culture consult ID, monitor CBC 72-year-old male with a past medical history significant for hypertension, history of atrial fibrillation status post ablation, CAD status post previous [place] , defibrillator implantation, CHF, chronic tobacco abuse, chronic alcohol abuse , history of polysubstance abuse and medication noncompliance since to [facility] ED with complaints of nonhealing wound left lower extremity for the past 2-3 weeks. Intermittent chest pain, r/o ACS Cardiomyopathy status post AICD implantation CAD s/p previous [place] Hx of atrial fibrillation s/p cardiac ablation Medication noncompliance - Patient with previous cardiac catheterization in 2010 showing triple- vessel disease with recommended medical management. - Trend cardiac enzymes and EKG. Initial troponin 0.02. trend normal - Interrogation of pacemaker. Will consider consultation of Dr. Macdonald. However patient improved. - Continuous cardiac monitoring - Aspirin daily - Heart healthy diet - Supplemental oxygen Nonhealing LLE wound - Patient given dose of Zosyn in the ED. Continue. - Patient does not appear septic. White count is normal. Lactic acid 1.4. He is afebrile. Follow-up on blood culture results. - Wound culture - Consult wound care nurse - Obtain soft tissue ultrasound to ascertain if there is an underlying abscess that would require surgical consultation. Imaging reviewed patient with likely abscess, consult gen surgery. Left wrist pain status post fall 1 year ago - Patient does appear to have some limited range of motion in deformity in the left wrist. Will obtain x-ray left wrist for further evaluation Hypertension - Patient admits to being noncompliant with his medications - BP was elevated at presentation 197/114. Improved now 129/69. CHF - Does not appear decompensated - Chest x-ray personally reviewed shows cardiomegaly and clear lungs. - Nuclear stress test done in 2013 showed ejection fraction of 25%. Patient is noncompliant with therapy. - Monitor for signs of fluid overload - Monitor respiratory status Macrocytosis - Likely secondary to alcohol use - Discussed abstinence Alcohol use - No signs/symptoms of alcohol withdrawal - Monitor Ongoing tobaccoism - Discussed smoking cessation - Nicotine patch if necessary DVT prophylaxis - Bilateral SCD/LAWRENCE hose - Lovenox 40 mg sq daily Porsha Greer MD Jul 23, 2017 16:17
--- NOTE | 2017-07-23 16:36 | PD.ID.CON ---
History of Present Illness Service Infectious disease Consult Requested By Reason for Consult Evaluation and management of bacteremia and abscess on the leg. Primary Care Physician Unknown Diagnoses: History of Present Illness Mr. Adame is a 72-year-old male with past medical history significant for hypertension, history of atrial fibrillation status post ablation, coronary artery disease status post previous AL, defibrillator implantation, CHF, chronic tobacco abuse, chronic alcohol use as well as history of polysubstance abuse and noncompliance with his medication. With this background patient presents to the emergency department complaining of nonhealing wound in the left lower extremity for the past 2-3 weeks. Patient states he fell and hit the area on a curb several weeks ago. He has been using peroxide at home and states that it's decreased in size. He reports intermittent drainage of serous fluid but denies any pus. Due to not being allowed to ride the bus because of the draining wound, patient went to the clinic today and was then sent to our facility. Patient underwent an ultrasound that showed a hypoechoic fluid collection in the left calf region surgery was consulted and patient underwent incision and drainage of the abscess. Blood cultures drawn on admission are now positive for gram-positive cocci as well as a wound culture showed growth of staph aureus and strep susceptibilities of both are pending at the present time. Patient had been empirically started on Zosyn and vancomycin IV. At the time of my evaluation patient is on the floor currently appears comfortable sitting in the bed. Infectious disease is consulted for evaluation and management of bacteremia and abscess of the leg. Review of Systems ROS Limitations: Poor Historian Constitutional: DENIES: Diaphoretic episodes, Fatigue, Fever, Weight gain, Weight loss, Chills, Dizziness, Change in appetite, Night Sweats Endocrine: DENIES: Heat/cold intolerance, Polydipsia, Polyuria, Polyphagia Eyes: DENIES: Blurred vision, Diplopia, Eye inflammation, Eye pain, Vision loss , Photosensitivity, Double Vision Ears, nose, mouth, throat: DENIES: Tinnitus, Hearing loss, Vertigo, Nasal discharge, Oral lesions, Throat pain, Hoarseness, Ear Pain, Running Nose, Epistaxis, Sinus Pain, Toothache, Odynophagia Respiratory: DENIES: Apneas, Cough, Snoring, Wheezing, Hemoptysis, Sputum production, Shortness of breath Cardiovascular: DENIES: Chest pain, Palpitations, Syncope, Dyspnea on Exertion , PND, Lower Extremity Edema, Orthopnea, Claudication Gastrointestinal: DENIES: Abdominal pain, Black stools, Bloody stools, Constipation, Diarrhea, Nausea, Vomiting, Difficulty Swallowing, Anorexia Genitourinary: DENIES: Sexual dysfunction, Urinary frequency, Urinary incontinence, Urgency, Hematuria, Dysuria, Nocturia, Penile Discharge, Testicular Pain, Testicular Swelling Musculoskeletal: DENIES: Joint pain, Muscle aches, Stiffness, Joint Swelling, Back pain, Neck pain Integumentary: DENIES: Abnormal pigmentation, Nail changes, Pruritus, Rash Hematologic/lymphatic: DENIES: Bruising, Lymphadenopathy Immunologic/allergic: DENIES: Eczema, Urticaria Neurologic: DENIES: Abnormal gait, Headache, Localized weakness, Paresthesias, Seizures, Speech Problems, Tremor, Poor Balance Psychiatric: DENIES: Anxiety, Confusion, Mood changes, Depression, Hallucinations, Agitation, Suicidal Ideation, Homicidal Ideation, Delusions Except as stated in HPI: all other systems reviewed are Neg Past Family Social History Allergies: Coded Allergies: No Known Allergies (Verified , 08/09/16) Past Medical History Hypertension History of atrial fibrillation CAD status post previous AL Cardiomyopathy status post AICD placement History of CHF Dyslipidemia Chronic tobacco abuse Chronic alcohol abuse Medication noncompliance Past Surgical History AICD placement Cardiac ablation Back surgery 2 Reported Medications I attest that I reviewed, obtained or updated the patient's home medications her current medications for name, frequency, dose and route of administration. Reported Meds & Active Scripts Active Reported Aspir-81 (Aspirin) 81 Mg Tabdr 162 Mg PO DAILY Active Ordered Medications Current Medications Medications (Trade) Dose Ordered Sig/Keith Route Start Time Stop Time Status Last Admin Sodium Chloride 1,000 ml @ 100 mls/hr Q10H IV 07/21/17 18:00 07/23/17 10:00 (NS Flush) 2 ml UNSCH PRN IV FLUSH 07/21/17 17:00 07/22/17 04:20 (NS Flush) 2 ml BID IV FLUSH 07/21/17 21:00 07/23/17 09:00 (Tylenol) 650 mg Q4H PRN PO 07/21/17 17:00 07/22/17 19:04 (Zofran Inj) 4 mg Q6H PRN IVP 07/21/17 17:00 (Lovenox Inj) 40 mg Q24H SQ 07/21/17 18:00 07/23/17 18:10 (Kylee-Colace) 1 tab BID PO 07/21/17 21:00 07/23/17 09:19 (Milk Of Magnesia Liq) 30 ml Q12H PRN PO 07/21/17 17:00 (Senokot) 17.2 mg Q12H PRN PO 07/21/17 17:00 (Dulcolax Supp) 10 mg DAILY PRN RECTAL 07/21/17 17:00 (Lactulose Liq) 30 ml DAILY PRN PO 07/21/17 17:00 (Narcan Inj) 0.4 mg UNSCH PRN IV PUSH 07/21/17 19:00 Pharmacy Profile Note 0 ml @ 0 mls/hr UNSCH OTHER 07/23/17 12:30 Vancomycin HCl 2000 mg/Sodium Chloride 520 ml @ 250 mls/hr Q18H IV 07/23/17 15:00 07/23/17 16:09 Miscellaneous Information SPECIFIC LAB TO BE DANIEL... ONCE ONCE .XX 07/25/17 20:45 07/25/17 20:46 Ceftriaxone Sodium 2000 mg/ Sodium Chloride 100 ml @ 200 mls/hr Q24H IV 07/23/17 17:00 Family History Mother, age 91 Sisters, age 91 and 92 Father, unknown, estranged Social History Patient reports history of tobacco use of one pack per month. He states he only smokes when he drinks. He admits to previously drinking large amounts of alcohol but states the last year he has cut down and now drinks once a week. He also reports rare marijuana use. Per EMR, previous history of cocaine use. Physical Exam Vital Signs Vital Signs Date Time Temp Pulse Resp B/P (MAP) Pulse Ox O2 Delivery O2 Flow Rate FiO2 07/23/17 12:00 98.4 95 20 136/66 (89) 93 07/23/17 08:00 97.3 89 20 137/85 (102) 93 07/23/17 04:00 98.3 98 20 124/75 (91) 93 07/23/17 00:03 97.7 88 20 134/81 (98) 95 07/22/17 21:25 98.0 97 20 138/75 (96) 96 07/22/17 20:22 91 07/22/17 20:11 98.2 87 19 155/77 (714) 94 Physical Exam GENERAL: This is a well-nourished, well-developed patient, in no apparent distress. SKIN: No rashes, ecchymoses or lesions. Cool and dry. HEAD: Atraumatic. Normocephalic. No temporal or scalp tenderness. EYES: Pupils equal round and reactive. Extraocular motions intact. No scleral icterus. No injection or drainage. ENT: Nose without bleeding, purulent drainage or septal hematoma. Throat without erythema, tonsillar hypertrophy or exudate. Uvula midline. Airway patent. NECK: Trachea midline. Supple, nontender, no meningeal signs. CARDIOVASCULAR: Regular rate and rhythm without murmurs, gallops, or rubs. RESPIRATORY: Clear to auscultation. Breath sounds equal bilaterally. No wheezes , rales, or rhonchi. GASTROINTESTINAL: Abdomen soft, non-tender, nondistended. No hepato-splenomegaly , or palpable masses. No guarding. MUSCULOSKELETAL: Extremities without clubbing, cyanosis, or edema. Left leg in postop dressing. NEUROLOGICAL: Awake and alert. Cranial nerves II through XII intact. Motor and sensory grossly within normal limits. Five out of 5 muscle strength in all muscle groups. Normal speech. Psych cooperative IV line sites with no evidence of infection. Laboratory Date/Time Source Procedure Growth Status 07/21/17 10:25 Blood Peripheral Aerobic Blood Culture - Preliminary NO GROWTH IN 2 DAYS Resulted 07/21/17 10:25 Blood Peripheral Anaerobic Blood Culture - Preliminary NO GROWTH IN 2 DAYS Resulted 07/22/17 23:07 Wound Skin Gram Stain - Final Resulted 07/22/17 23:07 Wound Skin Wound Culture - Preliminary Resulted Result Diagram: 07/22/17 0411 07/22/17 0411 Imaging Last Impressions Tibia/Fibula X-Ray 07/21/17 1500 Signed Impressions: Service Date/Time: Friday, July 21, 2017 15:19 - CONCLUSION: Osseous structures of the leg are intact. Rolando Hodges MD Chest X-Ray 07/21/17 1451 Signed Impressions: Service Date/Time: Friday, July 21, 2017 15:04 - CONCLUSION: Cardiomegaly. Clear lungs. Rolando George Jr., MD Wrist X-Ray 07/21/17 0000 Signed Impressions: Service Date/Time: Friday, July 21, 2017 17:34 - CONCLUSION: Displaced transverse fracture of the distal one third of the scaphoid. Rolando Hodges MD Lower Extremity Ultrasound 07/21/17 0000 Signed Impressions: Service Date/Time: Friday, July 21, 2017 18:52 - CONCLUSION: Complex hypoechoic collection in the medial left calf Frank Bedolla MD Assessment and Plan Assessment and Plan Gram-positive bacteremia Left leg abscess history of atrial fibrillation status post ablation, coronary artery disease status post previous AL, defibrillator implantation, CHF, chronic tobacco abuse, chronic alcohol use history of polysubstance abuse noncompliance with his medication. Recommendations: Discontinue Zosyn IV Start ceftriaxone IV Continue vancomycin IV target trough 15-20 Follow cultures next line follow clinically repeat blood cultures 2 today In view of history of pacemaker would like to ensure that this is a transient bacteremia. Further recommendations on Wednesday depending on the results of the blood cultures. Dr. Escamilla covering for me this weekend. Vero Hope MD Jul 23, 2017 16:36
[2017-07-23] MEDS: ENOXAPARIN SODIUM 40 MG/0.4 ML SYRINGE SQ SCH (18:10)
[2017-07-23] MEDS: cefTRIAXone INJ 2,000 MG in SODIUM CHLORIDE 0.9% INJ 100 ML IV SCH (20:15)
[2017-07-23] MEDS: ACETAMINOPHEN 325 MG TAB PO PRN (20:20)
[2017-07-24] VITALS (7 sets, daily range): BP systolic 127–157; BP diastolic 72–87; PULSE 80–93; RESP 14–18; TEMP 83–98.5; O2SAT 93–95
[2017-07-24] MEDS: SODIUM CHLOR 0.9% 1000 ML INJ 1,000 ML IV SCH ×2 (04:58→17:10)
[2017-07-24] MEDS: DOCUSATE SODIUM 50 MG/SENNA 8.6 MG TAB PO SCH ×2 (09:00→21:00)
[2017-07-24] MEDS: VANCOMYCIN INJ 2,000 MG in SODIUM CHLORID 0.9% 500 ML INJ 500 ML IV SCH (09:31)
[2017-07-24] MEDS: ACETAMINOPHEN 325 MG TAB PO PRN (09:31)
[2017-07-24] MEDS: SODIUM CHLORIDE 0.9% FLUSH 10 ML FLUSH IV FLUSH SCH ×2 (09:31→21:01)
--- NOTE | 2017-07-24 10:08 | HHI.PR ---
Objective Vital Signs Date Time Temp Pulse Resp B/P (MAP) Pulse Ox O2 Delivery O2 Flow Rate FiO2 07/24/17 08:00 98.0 88 17 144/80 (101) 94 07/24/17 04:00 Room Air 07/24/17 03:55 97.8 89 16 127/80 (96) 94 07/24/17 00:00 Room Air 07/23/17 23:17 98.3 96 16 144/78 (100) 92 07/23/17 20:00 97 07/23/17 20:00 Room Air 07/23/17 19:47 98.4 94 16 146/87 (106) 94 07/23/17 17:53 93 21 07/23/17 16:00 98.5 92 20 149/85 (106) 99 07/23/17 12:00 98.4 95 20 136/66 (89) 93 I/O 07/23/17 07/23/17 07/23/17 07/24/17 07/24/17 07/24/17 07:00 15:00 23:00 07:00 15:00 23:00 Intake Total 360 ml 1200 ml 480 ml Output Total 100 ml 850 ml 950 ml Balance 260 ml 350 ml -470 ml Intake Oral 360 ml 1200 ml 480 ml Output Urine Total 100 ml 850 ml 950 ml # Voids 1 # Bowel Movements 0 1 0 Result Diagram: 07/22/1741007/22/17410 Imaging Radiographs confirm chronic, displaced fracture of the left carpal scaphoid. 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 Assessment and Plan Assessment and Plan Impression: Chronic displaced left scaphoid fracture. Plan: In the face of the chronicity of the fracture, the smoking history, the history of severe cardiac disease with a compromised ejection fracture as well as an active infection in his leg, the patient is not a candidate for treatment of this fracture during this hospital admission. Sara Ramsey MD Jul 24, 2017 10:08
[2017-07-24 10:56] LABS: AUTOMATED NEUTROPHIL # 3.6 TH/MM3 (1.8-7.7); BASOPHIL # 0.1 TH/MM3 (0-0.2); BASOPHIL % 1.2 % (0.0-2.0); EOSINOPHIL # 0.6 TH/MM3 (0-0.4); EOSINOPHIL % 9.6 % (0.0-4.0); HEMATOCRIT 36.7 % (39.0-51.0); HEMOGLOBIN 12.3 GM/DL (13.0-17.0); LYMPH % 15.9 % (9.0-44.0); LYMPHOCYTE # 0.9 TH/MM3 (1.0-4.8); MEAN CELL VOLUME 101.4 FL (80.0-100.0); MEAN CORPUSCULAR HGB CONC 33.5 % (32.0-36.0); MEAN PLATELET VOLUME 6.8 FL (7.0-11.0); MONO % 11.8 % (0.0-8.0); MONOCYTE # 0.7 TH/MM3 (0-0.9); NEUT % 61.5 % (16.0-70.0); PLATELET COUNT 263 TH/MM3 (150-450); RED BLOOD COUNT 3.62 MIL/MM3 (4.50-5.90); RED CELL DISTRIBUTION WIDTH 14.4 % (11.6-17.2); WHITE BLOOD COUNT 5.9 TH/MM3 (4.0-11.0)
[2017-07-24 11:56] LABS: BICARBONATE 22.7 MEQ/L (21.0-32.0); CALCIUM 8.6 MG/DL (8.5-10.1); CREATININE 0.82 MG/DL (0.60-1.30)
--- NOTE | 2017-07-24 14:51 | HHI.PR ---
Subjective Remarks No acute events overnight. Afebrile, vital signs stable. Patient denies any pain in his left lower extremity. Denies fever/chills. Denies shortness of breath or chest pain. Objective Vitals Vital Signs Date Time Temp Pulse Resp B/P (MAP) Pulse Ox O2 Delivery O2 Flow Rate FiO2 07/24/17 13:11 97.6 88 18 141/72 (95) 94 07/24/17 10:30 94 07/24/17 08:00 98.0 88 17 144/80 (101) 94 07/24/17 04:00 Room Air 07/24/17 03:55 97.8 89 16 127/80 (96) 94 07/24/17 00:00 Room Air 07/23/17 23:17 98.3 96 16 144/78 (100) 92 07/23/17 20:00 97 07/23/17 20:00 Room Air 07/23/17 19:47 98.4 94 16 146/87 (106) 94 07/23/17 17:53 93 21 07/23/17 16:00 98.5 92 20 149/85 (106) 99 I/O 07/23/17 07/23/17 07/23/17 07/24/17 07/24/17 07/24/17 07:00 15:00 23:00 07:00 15:00 23:00 Intake Total 360 ml 1200 ml 480 ml Output Total 100 ml 850 ml 950 ml Balance 260 ml 350 ml -470 ml Intake Oral 360 ml 1200 ml 480 ml Output Urine Total 100 ml 850 ml 950 ml # Voids 1 # Bowel Movements 0 1 0 Result Diagram: 07/24/1790407/24/17904 Objective Remarks GENERAL: This is a well-nourished, well-developed patient, in no apparent distress. CARDIOVASCULAR: Regular rate and rhythm without murmurs, gallops, or rubs. RESPIRATORY: Clear to auscultation. Breath sounds equal bilaterally. No wheezes , rales, or rhonchi. GASTROINTESTINAL: Abdomen soft, non-tender, nondistended. Normal active bowel sounds MUSCULOSKELETAL: Left lower extremity in gauze. Gauze with shadowing. NEURO: Alert & Oriented x4 to person, place, time, situation. Moves all ext x4 A/P Assessment and Plan 72-year-old male with a past medical history significant for hypertension, history of atrial fibrillation status post ablation, CAD status post previous [place] , defibrillator implantation, CHF, chronic tobacco abuse, chronic alcohol abuse , history of polysubstance abuse and medication noncompliance since to [facility] ED with complaints of nonhealing wound left lower extremity for the past 2-3 weeks. Intermittent chest pain, r/o ACS Cardiomyopathy status post AICD implantation CAD s/p previous [place] Hx of atrial fibrillation s/p cardiac ablation Medication noncompliance - Patient with previous cardiac catheterization in 2010 showing triple- vessel disease with recommended medical management. - Trend cardiac enzymes and EKG. Initial troponin 0.02. trend normal - Continuous cardiac monitoring - Aspirin daily - Heart healthy diet - Supplemental oxygen prn Nonhealing LLE wound - s/p evacuation of hematoma (no evidence of infection found) - Associated bacteremia - 09/30 positive for staph, ID consulted - continue abx per ID - Wound cx MSSA - Wound care consulted Left wrist pain status post fall 1 year ago - X-ray showing chronic displaced left scaphoid fracture - Seen by hand surgery; no treatment at this time as patient is high risk for surgery Hypertension - Patient admits to being noncompliant with his medications - BP was elevated at presentation 197/114. Improved now 129/69. CHF - Does not appear decompensated - Chest x-ray shows cardiomegaly and clear lungs. - Nuclear stress test done in 2013 showed ejection fraction of 25%. Patient is noncompliant with therapy. - Monitor for signs of fluid overload - Monitor respiratory status Macrocytosis - Likely secondary to alcohol use Alcohol use - No signs/symptoms of alcohol withdrawal - Monitor Ongoing tobaccoism - Nicotine patch if necessary DVT prophylaxis - Bilateral SCD/LAWRENCE hose - Lovenox 40 mg sq daily Discharge Planning Pending clinical improvement and ID recommendations Ashanti Spencer MD Jul 24, 2017 14:51
--- NOTE | 2017-07-24 14:51 | HHI.PR ---
Subjective Remarks No acute events overnight. Afebrile, vital signs stable. Patient denies any pain in his left lower extremity. Denies fever/chills. Denies shortness of breath or chest pain. Objective Vitals Vital Signs Date Time Temp Pulse Resp B/P (MAP) Pulse Ox O2 Delivery O2 Flow Rate FiO2 07/24/17 13:11 97.6 88 18 141/72 (95) 94 07/24/17 10:30 94 07/24/17 08:00 98.0 88 17 144/80 (101) 94 07/24/17 04:00 Room Air 07/24/17 03:55 97.8 89 16 127/80 (96) 94 07/24/17 00:00 Room Air 07/23/17 23:17 98.3 96 16 144/78 (100) 92 07/23/17 20:00 97 07/23/17 20:00 Room Air 07/23/17 19:47 98.4 94 16 146/87 (106) 94 07/23/17 17:53 93 21 07/23/17 16:00 98.5 92 20 149/85 (106) 99 I/O 07/23/17 07/23/17 07/23/17 07/24/17 07/24/17 07/24/17 07:00 15:00 23:00 07:00 15:00 23:00 Intake Total 360 ml 1200 ml 480 ml Output Total 100 ml 850 ml 950 ml Balance 260 ml 350 ml -470 ml Intake Oral 360 ml 1200 ml 480 ml Output Urine Total 100 ml 850 ml 950 ml # Voids 1 # Bowel Movements 0 1 0 Result Diagram: 07/24/1790407/24/17904 Objective Remarks GENERAL: This is a well-nourished, well-developed patient, in no apparent distress. CARDIOVASCULAR: Regular rate and rhythm without murmurs, gallops, or rubs. RESPIRATORY: Clear to auscultation. Breath sounds equal bilaterally. No wheezes , rales, or rhonchi. GASTROINTESTINAL: Abdomen soft, non-tender, nondistended. Normal active bowel sounds MUSCULOSKELETAL: Left lower extremity in gauze. Gauze with shadowing. NEURO: Alert & Oriented x4 to person, place, time, situation. Moves all ext x4 A/P Assessment and Plan 72-year-old male with a past medical history significant for hypertension, history of atrial fibrillation status post ablation, CAD status post previous [place] , defibrillator implantation, CHF, chronic tobacco abuse, chronic alcohol abuse , history of polysubstance abuse and medication noncompliance since to [facility] ED with complaints of nonhealing wound left lower extremity for the past 2-3 weeks. Intermittent chest pain, r/o ACS Cardiomyopathy status post AICD implantation CAD s/p previous [place] Hx of atrial fibrillation s/p cardiac ablation Medication noncompliance - Patient with previous cardiac catheterization in 2010 showing triple- vessel disease with recommended medical management. - Trend cardiac enzymes and EKG. Initial troponin 0.02. trend normal - Continuous cardiac monitoring - Aspirin daily - Heart healthy diet - Supplemental oxygen prn Nonhealing LLE wound - s/p evacuation of hematoma (no evidence of infection found) - Associated bacteremia - 09/30 positive for staph, ID consulted - continue abx per ID - Wound cx MSSA - Wound care consulted Left wrist pain status post fall 1 year ago - X-ray showing chronic displaced left scaphoid fracture - Seen by hand surgery; no treatment at this time as patient is high risk for surgery Hypertension - Patient admits to being noncompliant with his medications - BP was elevated at presentation 197/114. Improved now 129/69. CHF - Does not appear decompensated - Chest x-ray shows cardiomegaly and clear lungs. - Nuclear stress test done in 2013 showed ejection fraction of 25%. Patient is noncompliant with therapy. - Monitor for signs of fluid overload - Monitor respiratory status Macrocytosis - Likely secondary to alcohol use Alcohol use - No signs/symptoms of alcohol withdrawal - Monitor Ongoing tobaccoism - Nicotine patch if necessary DVT prophylaxis - Bilateral SCD/ALWRENCE hose - Lovenox 40 mg sq daily Discharge Planning Pending clinical improvement and ID recommendations Ashanti Spencer MD Jul 24, 2017 14:51
[2017-07-24] MEDS: cefTRIAXone INJ 2,000 MG in SODIUM CHLORIDE 0.9% INJ 100 ML IV SCH (17:02)
[2017-07-24] MEDS: ENOXAPARIN SODIUM 40 MG/0.4 ML SYRINGE SQ SCH (17:04)
[2017-07-24] MEDS ORDERED: ZOLPIDEM TARTRATE 5 MG TAB PO ONE (19:45)
[2017-07-25] VITALS (8 sets, daily range): BP systolic 123–151; BP diastolic 58–82; PULSE 78–96; RESP 14–20; TEMP 97.4–98.5; O2SAT 92–95
[2017-07-25] MEDS: VANCOMYCIN INJ 2,000 MG in SODIUM CHLORID 0.9% 500 ML INJ 500 ML IV SCH ×2 (02:34→21:30)
[2017-07-25] MEDS: SODIUM CHLOR 0.9% 1000 ML INJ 1,000 ML IV SCH ×3 (02:39→21:31)
[2017-07-25] MEDS: ACETAMINOPHEN 325 MG TAB PO PRN ×2 (04:44→21:31)
[2017-07-25 08:55] LABS: AUTOMATED NEUTROPHIL # 2.8 TH/MM3 (1.8-7.7); BASOPHIL # 0.1 TH/MM3 (0-0.2); BASOPHIL % 2.4 % (0.0-2.0); EOSINOPHIL # 0.5 TH/MM3 (0-0.4); EOSINOPHIL % 11.3 % (0.0-4.0); HEMOGLOBIN 11.8 GM/DL (13.0-17.0); LYMPH % 15.7 % (9.0-44.0); LYMPHOCYTE # 0.8 TH/MM3 (1.0-4.8); MEAN CELL VOLUME 101.9 FL (80.0-100.0); MEAN CORPUSCULAR HEMOGLOBIN 34.5 PG (27.0-34.0); MEAN CORPUSCULAR HGB CONC 33.8 % (32.0-36.0); MEAN PLATELET VOLUME 7.3 FL (7.0-11.0); MONO % 13.1 % (0.0-8.0); MONOCYTE # 0.6 TH/MM3 (0-0.9); NEUT % 57.5 % (16.0-70.0); PLATELET COUNT 228 TH/MM3 (150-450); RED BLOOD COUNT 3.43 MIL/MM3 (4.50-5.90); RED CELL DISTRIBUTION WIDTH 14.1 % (11.6-17.2); WHITE BLOOD COUNT 4.8 TH/MM3 (4.0-11.0)
[2017-07-25] MEDS: SODIUM CHLORIDE 0.9% FLUSH 10 ML FLUSH IV FLUSH SCH ×2 (09:00→21:31)
[2017-07-25] MEDS: DOCUSATE SODIUM 50 MG/SENNA 8.6 MG TAB PO SCH ×2 (09:00→21:00)
[2017-07-25 09:11] LABS: BICARBONATE 22.5 MEQ/L (21.0-32.0); CALCIUM 8.7 MG/DL (8.5-10.1); CREATININE 0.79 MG/DL (0.60-1.30)
--- NOTE | 2017-07-25 13:34 | HHI.PR ---
Subjective Remarks No acute events overnight. AVSS. Patient with no complaints this am. Objective Vitals Vital Signs Date Time Temp Pulse Resp B/P (MAP) Pulse Ox O2 Delivery O2 Flow Rate FiO2 07/25/17 13:29 95 07/25/17 08:00 97.7 78 20 151/69 (96) 95 07/25/17 04:00 97.4 87 14 140/80 (100) 92 07/25/17 00:00 98.5 90 16 123/76 (92) 94 07/24/17 21:43 93 21 07/24/17 20:00 Room Air 07/24/17 20:00 80 07/24/17 20:00 98.5 93 14 141/87 (105) 95 07/24/17 16:00 98.0 86 18 157/79 (105) 93 I/O 07/24/17 07/24/17 07/24/17 07/25/17 07/25/17 07/25/17 07:00 15:00 23:00 07:00 15:00 23:00 Intake Total 480 ml 1865 ml Output Total 950 ml 1800 ml 475 ml Balance -470 ml 1865 ml -1800 ml -475 ml Intake Oral 480 ml 840 ml IV Total 1025 ml Output Urine Total 950 ml 1800 ml 475 ml # Bowel Movements 0 Result Diagram: 07/25/1740 07/25/17639 Objective Remarks GENERAL: This is a well-nourished, well-developed patient, in no apparent distress. CARDIOVASCULAR: Regular rate and rhythm without murmurs, gallops, or rubs. RESPIRATORY: Clear to auscultation. Breath sounds equal bilaterally. No wheezes , rales, or rhonchi. GASTROINTESTINAL: Abdomen soft, non-tender, nondistended. Normal active bowel sounds MUSCULOSKELETAL: Left lower extremity in gauze. Dressing c/d/i. NEURO: Alert & Oriented x4 to person, place, time, situation. Moves all ext x4 A/P Assessment and Plan 72-year-old male with a past medical history significant for hypertension, history of atrial fibrillation status post ablation, CAD status post previous [place] , defibrillator implantation, CHF, chronic tobacco abuse, chronic alcohol abuse , history of polysubstance abuse and medication noncompliance since to [facility] ED with complaints of nonhealing wound left lower extremity for the past 2-3 weeks. Intermittent chest pain, r/o ACS Cardiomyopathy status post AICD implantation CAD s/p previous [place] Hx of atrial fibrillation s/p cardiac ablation Medication noncompliance - Patient with previous cardiac catheterization in 2010 showing triple- vessel disease with recommended medical management. - Trend cardiac enzymes and EKG. Initial troponin 0.02. trend normal - Continuous cardiac monitoring - Aspirin daily - Heart healthy diet - Supplemental oxygen prn Nonhealing LLE wound - s/p evacuation of hematoma (no evidence of infection found) - Associated bacteremia - 09/30 positive for staph, ID consulted - continue abx per ID - Wound cx MSSA - Wound care consulted Left wrist pain status post fall 1 year ago - X-ray showing chronic displaced left scaphoid fracture - Seen by hand surgery; no treatment at this time as patient is high risk for surgery Hypertension - Patient admits to being noncompliant with his medications - BP was elevated at presentation 197/114. Improved now 129/69. CHF - Does not appear decompensated - Chest x-ray shows cardiomegaly and clear lungs. - Nuclear stress test done in 2013 showed ejection fraction of 25%. Patient is noncompliant with therapy. - Monitor for signs of fluid overload - Monitor respiratory status Macrocytosis - Likely secondary to alcohol use Alcohol use - No signs/symptoms of alcohol withdrawal - Monitor Ongoing tobaccoism - Nicotine patch if necessary DVT prophylaxis - Bilateral SCD/LAWRENCE hose - Lovenox 40 mg sq daily Discharge Planning Pending clinical improvement and ID recommendations Ashanti Spencer MD Jul 25, 2017 13:34
[2017-07-25] MEDS: cefTRIAXone INJ 2,000 MG in SODIUM CHLORIDE 0.9% INJ 100 ML IV SCH (19:02)
[2017-07-25] MEDS: ENOXAPARIN SODIUM 40 MG/0.4 ML SYRINGE SQ SCH (19:02)
[2017-07-25] MEDS ORDERED: PHARMACY ORDERED LAB ONE (20:45)
[2017-07-25] MEDS ORDERED: ZOLPIDEM TARTRATE 5 MG TAB PO PRN (21:15)
[2017-07-26] VITALS: BP 134/65; PULSE 79; RESP 18; TEMP 97.4; O2SAT 95
[2017-07-26 04:00] VITALS: BP 141/87; PULSE 82; RESP 19; TEMP 97.2; O2SAT 97
[2017-07-26] MEDS: ACETAMINOPHEN 325 MG TAB PO PRN (05:18)
[2017-07-26 07:09] LABS: AUTOMATED NEUTROPHIL # 1.8 TH/MM3 (1.8-7.7); BASOPHIL # 0.1 TH/MM3 (0-0.2); BASOPHIL % 2.7 % (0.0-2.0); EOSINOPHIL # 0.7 TH/MM3 (0-0.4); EOSINOPHIL % 17.1 % (0.0-4.0); HEMATOCRIT 34.6 % (39.0-51.0); HEMOGLOBIN 11.5 GM/DL (13.0-17.0); LYMPH % 18.6 % (9.0-44.0); LYMPHOCYTE # 0.7 TH/MM3 (1.0-4.8); MEAN CELL VOLUME 101.6 FL (80.0-100.0); MEAN CORPUSCULAR HEMOGLOBIN 33.8 PG (27.0-34.0); MEAN CORPUSCULAR HGB CONC 33.3 % (32.0-36.0); MEAN PLATELET VOLUME 6.8 FL (7.0-11.0); MONO % 15.2 % (0.0-8.0); MONOCYTE # 0.6 TH/MM3 (0-0.9); NEUT % 46.4 % (16.0-70.0); PLATELET COUNT 227 TH/MM3 (150-450); RED BLOOD COUNT 3.41 MIL/MM3 (4.50-5.90); RED CELL DISTRIBUTION WIDTH 14.6 % (11.6-17.2); WHITE BLOOD COUNT 3.9 TH/MM3 (4.0-11.0)
[2017-07-26 08:00] VITALS: PULSE 80
[2017-07-26 08:02] VITALS: BP 146/79; PULSE 79; RESP 18; TEMP 97.8; O2SAT 95
[2017-07-26 08:02] LABS: BICARBONATE 25.1 MEQ/L (21.0-32.0); CALCIUM 8.2 MG/DL (8.5-10.1); CREATININE 0.73 MG/DL (0.60-1.30)
--- NOTE | 2017-07-26 08:35 | MB ---
cc: RIGOBERTO ROLLINS DATE OF CONSULTATION: 07/24/2017 CHIEF COMPLAINT Left wrist pain. HISTORY OF PRESENT ILLNESS The patient is 72-year-old white male who was admitted to the hospital on 07/21/2017 after having significant complaints of Nonhealing wound the left lower extremity, that has been there for weeks. He states that he had fallen and hit the area on a curb several weeks prior to that. He had been trying to clean it at home with peroxide. He states that it consistently started draining. This wound is being dealt with by the general surgery team and wound care has since been irrigated, debrided and is being dealt with, with packing. While he is here on his admission, he is also complaining of left wrist pain. He states that he had a fall approximately one year ago for which he fell and hurt his wrist. He states his wrist and hurting ever since. He states that he never sought medical treatment for his left wrist. He states he has been dealing with. He reports that it is sore off and on. He reports when he does certain movements. He has pain in the wrist near the thumb. He states that it is an ache. He states that he has been able to do all the activities that he needs to however, he has been having pain while he does move those activities. Denies any numbness, tingling or radiation of symptoms. Denies any other pain except in the leg. REVIEW OF SYSTEMS Negative except for what is in the history of present illness. PAST MEDICAL HISTORY: 1. Positive for hypertension 2. Atrial fibrillation 3. Coronary artery disease with previous myocardial infarction. 4. Cardiomyopathy with an AICD placement 5. positive for history of congestive heart failure. 6. Dyslipidmeia. 7. Chronic tobacco abuser. 8. Chronic alcohol use. 9. Medication noncompliance. PAST SURGICAL HISTORY Positive for AICD placement, cardiac ablation and back surgery twice. MEDICATIONS: The patient denies taking any medications at home but for a complete list of inpatient medications please see electronic medical record. ALLERGIES No known allergies. FAMILY HISTORY Mother and one sisters at age 91-92. Father unknown. SOCIAL HISTORY Apparently is a pack per month smoker, he says that he only smokes when he drinks. He states that he is a previous alcoholic but lately has been trying to cut down on the amount of alcohol that he drinks, also reports marijuana use. PHYSICAL EXAMINATION VITAL SIGNS: Temperature 97.8, pulse 89, respiratory rate 16, blood pressure 127/80, O2 saturation 94 on room air. IN GENERAL: Well-developed, well-nourished surgical male resting comfortably. No acute distress. HEAD: Normocephalic, atraumatic. EARS: Hearing intact bilaterally. EYES: Extraocular motions intact and pupils equal and react to light. NEUROLOGIC: Cranial nerves II-XII grossly intact. NECK: Supple. No evidence of lymphadenopathy. LUNGS: No use of accessory muscles of breathing. No auditory wheezes at bedside. HEART: No grade 4 murmur present. ABDOMEN: Soft, nontender. MUSCULOSKELETAL: Left upper extremity full motion of shoulder, elbow, wrist and fingers. He has moderate pain with maximal flexion extension of the wrist. He has point tenderness in the anatomic snuff box and over the scaphoid bone. He is able to make a fist and extend his finger completely. He has full sensation in median and ulnar nerve distribution. Right upper extremity full motion of shoulder, elbow, wrist and fingers. No pain with full sensation distally. The left lower extremity full motion of the hip, knee, ankle and toes. There is an abscess present on the medial tibia that is approximately 5 x 5 cm. There is serous drainage with a bandage present. There is packing present. He has full sensation distally. Right lower extremity full motion of the hip, knee, ankle and toes. No painful sensation distally. IMAGING STUDIES X-rays of the left wrist reviewed from [facility] which show a nondisplaced, transverse fracture of the left scaphoid. There is not appear to be a significant evidence of healing. ASSESSMENT Nonunion left scaphoid fracture. PLAN I had a discussion with the patient in regards to treatment options. Since this fracture is indeed one year old according to the patient. This has developed into a nonunion fracture. This will likely need surgical intervention for treatment. This is a condition that would best be treated by a hand retail merchandising specialist. I recommended a consult to hand surgery doctors to evaluate for possible surgical intervention. I will place this consult today. Otherwise, there is no further orthopedic service needed. Since this patients injury is a year old there is no need for bracing at this time. I will consult hand surgery for evaluation for possible open reduction, internal fixation of nonunion of left scaphoid. Orthopedics will be signing off at this time. Thank you for this consultation. If any further orthopedic needs arise please feel free to reconsult this. DICTATED BY: Haseeb Nguyen PA-C History, past medical history, social history, review of systems, physical exam , radiographs, assessment, and plan were also reviewed. This patient may need surgical intervention. A hand retail merchandising specialist will be consulted for further evaluation.. A mid-level provider in my office (nurse practitioner or physician assistant restaurant general manager) may see this patient on follow-up visits and continue to implement the objectives of this plan including: Starting or adjusting medications, injections, cast application, orthotics, brace application, physical therapy, radiological studies (including x-ray, MRI, CT, ultrasound, bone scan), vascular studies, neurologic studies, specialist consultation, and proceeding with surgical management, as appropriate. MD GREG Lea/baudilio /7:34 AM /8:33 AM JESICA
[2017-07-26] MEDS ORDERED: SULFAMETHOXAZOLE-TRIMETHOPRIM 400-80 MG TAB PO SCH (09:00)
[2017-07-26] MEDS: DOCUSATE SODIUM 50 MG/SENNA 8.6 MG TAB PO SCH (09:00)
[2017-07-26] MEDS ORDERED: LEVOFLOXACIN 500 MG TAB PO SCH (09:00)
[2017-07-26] MEDS: SODIUM CHLORIDE 0.9% FLUSH 10 ML FLUSH IV FLUSH SCH (09:00)
[2017-07-26] MEDS: SODIUM CHLOR 0.9% 1000 ML INJ 1,000 ML IV SCH (09:54)
--- NOTE | 2017-07-26 10:46 | HHI.PR ---
Subjective Subjective Notes Eating breakfast No issues Objective Vitals/I&O Vital Signs Date Time Temp Pulse Resp B/P (MAP) Pulse Ox O2 Delivery O2 Flow Rate FiO2 07/26/17 08:02 97.8 79 18 146/79 (101) 95 07/25/17 20:00 Room Air 07/25/17 17:50 21 Labs Laboratory Tests Test 07/25/17 20:35 07/26/17 06:10 Vancomycin Level Trough 13.8 White Blood Count 3.9 Red Blood Count 3.41 Hemoglobin 11.5 Hematocrit 34.6 Mean Corpuscular Volume 101.6 Mean Corpuscular Hemoglobin 33.8 Mean Corpuscular Hemoglobin Concent 33.3 Red Cell Distribution Width 14.6 Platelet Count 227 Mean Platelet Volume 6.8 Neutrophils (%) (Auto) 46.4 Lymphocytes (%) (Auto) 18.6 Monocytes (%) (Auto) 15.2 Eosinophils (%) (Auto) 17.1 Basophils (%) (Auto) 2.7 Neutrophils # (Auto) 1.8 Lymphocytes # (Auto) 0.7 Monocytes # (Auto) 0.6 Eosinophils # (Auto) 0.7 Basophils # (Auto) 0.1 CBC Comment DIFF FINAL Differential Comment Blood Urea Nitrogen 10 Creatinine 0.73 Random Glucose 95 Calcium Level 8.2 Sodium Level 140 Potassium Level 4.1 Chloride Level 109 Carbon Dioxide Level 25.1 Anion Gap 6 Estimat Glomerular Filtration Rate 105 Date/Time Source Procedure Growth Status 07/23/17 19:16 Blood Peripheral Aerobic Blood Culture - Preliminary NO GROWTH IN 2 DAYS Resulted 07/23/17 19:16 Blood Peripheral Anaerobic Blood Culture - Preliminary NO GROWTH IN 2 DAYS Resulted 07/22/17 23:07 Wound Skin Gram Stain - Final Complete 07/22/17 23:07 Wound Culture - Final Staphylococcus Aureus Strep Not A,B D Complete Cardiovascular: Regular Lungs: Clear Abdomen: Non-distended, Non-tender Narrative Exam LEFT leg: s/p I&D of hematoma and cultures---dressing removed and packing replaced; no drainage A/P Assessment and Plan 72 year old male s/p I&D of LEFT leg hematoma -Continue dressing changes daily -Regular diet -Antibiotics per ID -CCM consult---patient does not want [facility] but agrees to go to the Wound Care Clinic for daily dressing changes -GS will sign off Attending Statement The exam, history, and the medical decision-making described in the above note were completed with the assistance of the mid-level provider. I reviewed and agree with the findings presented. I attest that I had a [id number] encounter with the patient on the same day, and personally performed and documented my assessment and findings in the medical record. would healing well, continue dressings, ok to DC home with wound care, fu with me in the office in 2 weeks Nica Harper Jul 26, 2017 10:46 Forrest Nieto MD Jul 28, 2017 08:16
[2017-07-26 12:24] VITALS: BP 134/70; PULSE 86; RESP 18; TEMP 97.5; O2SAT 96
--- NOTE | 2017-07-26 13:29 | PD.WCN.NOT ---
Wound Consult Description: Reconsult received from Doctor Spencer for wound managment of LLE. Communicated with: EMMA Grier [place], MARIBELL Harper, Ivania Iniguez Case management, and call placed to Doctor Chen Recommendation: Please cleanse wound with normal saline and pack wound with (Calcium alginate AG ) Maxorb extra AG cut in a single strip and cover with an ABD Pad. Secure with rolled gauze and tape. Change dressing every 2 days or PRN if saturated or dislodged. Additional Information: Patient seen on for evaluation of LLE wound management. Removed rolled gauze and plain packing in place to L anterior cohn to reveal wound. Wound presents with ~50% pale red tissue, 30% dark red tissue, and ~20% purple tissue. Cleansed wound with normal saline. Wound measures 3cm x 2cm x 1.5cm. Undermining is circumferential deepest at 12 o'clock 3.6cm. Wound drainage is moderate sero-sanguinous without odor. PEriwound is indurated from 7 to 12 o' clock. Wound is post I&D. EMMA Grier will pack wound with Maxorb extra AG and cover with an ABD pad, secured with rolled gauze and tape as recommended above. Patient does not want [facility] nurses in home, wants to have wound clinic change dressing. Aisha Sanchez [facility] Jul 26, 2017 13:29
--- NOTE | 2017-07-26 13:29 | PD.WCN.NOT ---
Wound Consult Description: Reconsult received from Doctor Spencre for wound managment of LLE. Communicated with: EMMA Grier [place], MARIBELL Harper, Ivania Iniguez Case management, and call placed to Doctor Chen Recommendation: Please cleanse wound with normal saline and pack wound with (Calcium alginate AG ) Maxorb extra AG cut in a single strip and cover with an ABD Pad. Secure with rolled gauze and tape. Change dressing every 2 days or PRN if saturated or dislodged. Additional Information: Patient seen on for evaluation of LLE wound management. Removed rolled gauze and plain packing in place to L anterior cohn to reveal wound. Wound presents with ~50% pale red tissue, 30% dark red tissue, and ~20% purple tissue. Cleansed wound with normal saline. Wound measures 3cm x 2cm x 1.5cm. Undermining is circumferential deepest at 12 o'clock 3.6cm. Wound drainage is moderate sero-sanguinous without odor. PEriwound is indurated from 7 to 12 o' clock. Wound is post I&D. EMMA Grier will pack wound with Maxorb extra AG and cover with an ABD pad, secured with rolled gauze and tape as recommended above. Patient does not want [facility] nurses in home, wants to have wound clinic change dressing. Aisha Sanchez [facility] Jul 26, 2017 13:29
--- NOTE | 2017-07-26 13:29 | PD.WCN.NOT ---
Wound Consult Description: Reconsult received from Doctor Spencer for wound managment of LLE. Communicated with: EMMA Grier [place], MARIBELL Harper, Ivania Iniguez Case management, and call placed to Doctor Chen Recommendation: Please cleanse wound with normal saline and pack wound with (Calcium alginate AG ) Maxorb extra AG cut in a single strip and cover with an ABD Pad. Secure with rolled gauze and tape. Change dressing every 2 days or PRN if saturated or dislodged. Additional Information: Patient seen on for evaluation of LLE wound management. Removed rolled gauze and plain packing in place to L anterior cohn to reveal wound. Wound presents with ~50% pale red tissue, 30% dark red tissue, and ~20% purple tissue. Cleansed wound with normal saline. Wound measures 3cm x 2cm x 1.5cm. Undermining is circumferential deepest at 12 o'clock 3.6cm. Wound drainage is moderate sero-sanguinous without odor. PEriwound is indurated from 7 to 12 o' clock. Wound is post I&D. EMMA Grier will pack wound with Maxorb extra AG and cover with an ABD pad, secured with rolled gauze and tape as recommended above. Patient does not want [facility] nurses in home, wants to have wound clinic change dressing. Aisha Sanchez [facility] Jul 26, 2017 13:29
[2017-07-26 13:52] VITALS: O2SAT 96
[2017-07-26] MEDS ORDERED: LEVA500T20 PO (14:46)
[2017-07-26] MEDS ORDERED: SULF1TAB58 PO (14:46)
--- NOTE | 2017-07-26 14:52 | HHI.DS ---
Discharge Summary Admission Date Jul 21, 2017 at 18:50 Discharge Date: Jul 26, 2017 Admitting Diagnosis intermittent chest pains/left leg cellulitis/wound (1) Leg wound, left ICD Code: S81.802A - Unspecified open wound, left lower leg, initial encounter Status: Acute (2) Cellulitis ICD Code: L03.90 - Cellulitis, unspecified Status: Acute (3) Chest pain ICD Code: R07.9 - Chest pain Status: Acute Procedures s/p I&D of LEFT leg hematoma Brief History - From Admission Written by Radha Solorzano, acting as scribe for Dr. Cruz on 07/21/17 at 17: 27. This is 72-year-old male with a past medical history significant for hypertension, history of atrial fibrillation status post ablation, CAD status post previous AL, defibrillator implantation, CHF, chronic tobacco abuse, chronic alcohol abuse, history of polysubstance abuse and medication noncompliance since to [facility] ED with complaints of nonhealing wound left lower extremity for the past 2-3 weeks. Patient states he fell and hit the area on a curb several weeks ago. He's been using peroxide at home and states that it's decreased in size. He reports intermittent drainage of serous fluid but denies any pus. Due to not being allowed to ride the bus because of the draining wound, patient went to the clinic today and was then sent to our facility. Additionally, patient complains of intermittent chest pain. He states this most often occurs at rest when he is trying to sleep at night. Occasionally radiates into the left arm. He reports associated shortness of breath. He denies any palpitations, lightheadedness, nausea or vomiting. Patient reports improvement after sitting up on the side of the bed for several minutes. He states he does not have the defibrillator interrogated in quite some time. Also, patient complains of ongoing left wrist pain since he sustained a fall approximately one year ago. "I know that it's broken". At present, patient is chest pain-free. Initial troponin 0.02. EKG was obtained which shows a paced rhythm at a rate of 92 bpm with no evidence of acute ST-T changes. CBC/BMP: 07/26/17 0610 07/26/17 0610 Significant Findings Laboratory Tests Test 07/24/17 09:05 07/25/17 06:40 07/25/17 20:35 07/26/17 06:10 Red Blood Count 3.62 MIL/MM3 (4.50-5.90) 3.43 MIL/MM3 (4.50-5.90) 3.41 MIL/MM3 (4.50-5.90) Hemoglobin 12.3 GM/DL (13.0-17.0) 11.8 GM/DL (13.0-17.0) 11.5 GM/DL (13.0-17.0) Hematocrit 36.7 % (39.0-51.0) 35.0 % (39.0-51.0) 34.6 % (39.0-51.0) Mean Corpuscular Volume 101.4 FL (80.0-100.0) 101.9 FL (80.0-100.0) 101.6 FL (80.0-100.0) Mean Platelet Volume 6.8 FL (7.0-11.0) 6.8 FL (7.0-11.0) Monocytes (%) (Auto) 11.8 % (0.0-8.0) 13.1 % (0.0-8.0) 15.2 % (0.0-8.0) Eosinophils (%) (Auto) 9.6 % (0.0-4.0) 11.3 % (0.0-4.0) 17.1 % (0.0-4.0) Lymphocytes # (Auto) 0.9 TH/MM3 (1.0-4.8) 0.8 TH/MM3 (1.0-4.8) 0.7 TH/MM3 (1.0-4.8) Eosinophils # (Auto) 0.6 TH/MM3 (0-0.4) 0.5 TH/MM3 (0-0.4) 0.7 TH/MM3 (0-0.4) Mean Corpuscular Hemoglobin 34.5 PG (27.0-34.0) Basophils (%) (Auto) 2.4 % (0.0-2.0) 2.7 % (0.0-2.0) Vancomycin Level Trough 13.8 MCG/ML (5.0-10.0) White Blood Count 3.9 TH/MM3 (4.0-11.0) Calcium Level 8.2 MG/DL (8.5-10.1) Chloride Level 109 MEQ/L (98-107) PE at Discharge GENERAL: This is a well-nourished, well-developed patient CARDIOVASCULAR: Regular rate and rhythm without murmurs RESPIRATORY: Clear to auscultation. Breath sounds equal bilaterally. No wheezes GASTROINTESTINAL: Abdomen soft, non-tender, nondistended. Normal active bowel sounds MUSCULOSKELETAL: Left lower extremity in gauze. Dressing c/d/i. NEURO: Alert & Oriented x4 to person, place, time, situation. Moves all ext x4 Pt update on day of discharge Pt upset that he is not having surgery for his hand although he was evaluated by hand sx and told he was not a surgical candidate. no complaints of pain, nausea or vomiting at this time states he has a bus pass CM at bedside Hospital Course 72-year-old male with a past medical history significant for hypertension, history of atrial fibrillation status post ablation, CAD status post previous AL , defibrillator implantation, CHF, chronic tobacco abuse, chronic alcohol abuse , history of polysubstance abuse and medication noncompliance since to [facility] ED with complaints of nonhealing wound left lower extremity for the past 2-3 weeks. Intermittent chest pain, r/o ACS Cardiomyopathy status post AICD implantation CAD s/p previous AL Hx of atrial fibrillation s/p cardiac ablation Medication noncompliance - Patient with previous cardiac catheterization in 2010 showing triple- vessel disease with recommended medical management. CE wnl. daily ASA. heart healthy diet. Nonhealing LLE wound - s/p evacuation of hematoma (no evidence of infection found) - Associated bacteremia - 1/4 positive for staph, ID consulted - Discussed w ID, continue levaquin and bactrim x 10 days. Discussed w offset second press operator. " cleanse wound with normal saline and pack wound with (Calcium alginate AG) Maxorb extra AG cut in a single strip and cover with an ABD Pad. Secure with rolled gauze and tape. Change dressing every 2 days or PRN if saturated or dislodged". Pt was instructed by CM to go to his PCP tomorrow and get referral to wound care clinic as he refused home health care for his wound care management. Left wrist pain status post fall 1 year ago - X-ray showing chronic displaced left scaphoid fracture - Seen by hand surgery; no treatment at this time as patient is high risk for surgery Hypertension - Patient admits to being noncompliant with his medications - BP was elevated at presentation 197/114. Improved now 129/69. CHF - Does not appear decompensated - Chest x-ray shows cardiomegaly and clear lungs. - Nuclear stress test done in 2013 showed ejection fraction of 25%. Patient is noncompliant with therapy. Pt Condition on Discharge: Stable Discharge Disposition: Discharge Home Discharge Time: > 30 minutes Discharge Instructions DIET: Follow Instructions for: Heart Healthy Diet Activities you can perform: Regular-No Restrictions Follow up Referrals: PCP Follow-up - 07/27/17 Surgical - 1 Week Wound Care Clinic - 2 Days New Medications: Levofloxacin (Levaquin) 500 Mg Tablet 500 MG PO DAILY, #10 Sulfamethoxazole/Trimethoprim (Sulfamethoxazole-Tmp Ss Tablet) 400 Mg-80 Mg Tablet 1 TAB PO Q12HR, #20 Continued Medications: Aspirin (Aspir-81) 81 Mg Tabdr 162 MG PO DAILY Laila Chen MD Jul 26, 2017 14:52
== END 2017-07-26 16:40 | disposition home or self-care (01) | DRG 603 ==
LOC: NEPC 14:27 → NEDA 16:56 → NEPHCDU 17:57 → OBSVTOIN 18:50 → N04B 07-22 21:25
PROVIDERS: ADMIT Hospitalist; ATTEND Hospitalist
PROC: 0JCP3ZZ Extirpation of Matter from Left Lower Leg Subcutaneous Tissue and Fascia, Percutaneous Approach (ICD-10-PCS; principal; 2017-07-22)
DX: L03.116 Cellulitis of left lower limb (principal); R78.81 Bacteremia; I42.9 Cardiomyopathy, unspecified; I11.0 Hypertensive heart disease with heart failure; I50.9 Heart failure, unspecified; B95.61 Methicillin susceptible Staphylococcus aureus infection as the cause of diseases classified elsewhere; D75.89 Other specified diseases of blood and blood-forming organs; E78.5 Hyperlipidemia, unspecified; B95.4 Other streptococcus as the cause of diseases classified elsewhere; S62.012A Displaced fracture of distal pole of navicular [scaphoid] bone of left wrist, initial encounter for closed fracture; S80.12XA Contusion of left lower leg, initial encounter; I25.2 Old myocardial infarction; I25.10 Atherosclerotic heart disease of native coronary artery without angina pectoris; R07.9 Chest pain, unspecified; B96.89 Other specified bacterial agents as the cause of diseases classified elsewhere; F10.10 Alcohol abuse, uncomplicated; F12.90 Cannabis use, unspecified, uncomplicated; F17.200 Nicotine dependence, unspecified, uncomplicated; W10.1XXA Fall (on)(from) sidewalk curb, initial encounter; Z91.14 Patient's other noncompliance with medication regimen; Z95.810 Presence of automatic (implantable) cardiac defibrillator
CPT/HCPCS: 71010; 73110; 73590; 76882; 80048; 80053; 80202; 82550; 83605; 84484; 85025; 86403; 87040; 87070; 87077; 87186; 87205; 93005; J0696; J1650; J2543; J3370; J7030; J7040